=== PATIENT | male | born 1945 | race Caucasian/White ===

== ENCOUNTER 2020-09-27 15:20 | Emergency (ER) | payer OTHER ==
--- OUTSIDE RECORDS SUMMARY | 2020-09-27 15:23 | XMS REPORT | Clinical Summary ---
:1945 Author Organization [facility] Address [address] [place] [address] Care Team Providers Name Role Phone Dominic Duque DO Primary Care Provider [phone] Allergies Active Allergy Reactions Severity Noted Date Comments Penicillins Rash High 01/29/2016 Medications Medication Sig Dispensed Refills Start Date End Date Status aspirin (ECOTRIN) 81 MG Take 81 mg by 0 Active enteric coated tablet mouth daily. 80 mg 1 tablet daily multivit with 1 tablet daily. 0 Active bpb-YO-foobxtbx 400-300 Men's One Daily mcg tablet liraglutide (VICTOZA Inject 0.3 mL 9 pen 1 01/14/2017 Active 3-NANCI) 0.6 mg/0.1 mL (1.8 mg total) (18 mg/3 mL) pen under the skin injector daily with breakfast. Additional Information Patient taking differently: 1.8 mg subcutaneous daily before lunch, Informant: Self, Reported on 06/02/2018 BD ULTRA-FINE SHLOMO Use as directed 200 each 9 05/07/2017 Active PEN NEEDLES 32 gauge twice daily x 5/32" needle FREESTYLE LITE STRIPS Use to check 400 strip 10 05/09/2017 Active strip test strips blood sugar four times daily insulin GLARGINE Inject 65 Units 0 Active (LANTUS) 100 unit/mL under the skin injection (vial) every morning. cyanocobalamin 1000 Take 1,000 mcg 0 Active MCG tablet by mouth nightly. furosemide (LASIX) 40 Take 40 mg by 0 Active mg tablet mouth daily. insulin aspart Inject 20 Units 0 Active (NOVOLOG FLEXPEN under the skin. U-100 INSULIN SUBQ) metFORMIN Take 1,000 mg 0 Active (GLUCOPHAGE) 1,000 mg by mouth 2 tablet (two) times a day with meals. digOXIN (LANOXIN) 125 Take 125 mcg by 0 Active mcg (0.125 mg) tablet mouth daily. spironolactone Take 25 mg by 0 A ctive (ALDACTONE) 25 MG mouth daily. tablet carvediloL (COREG) Take 3.125 mg 0 Active 3.125 MG tablet by mouth 2 (two) times a day with meals. iron Take by mouth. 0 Activ e bisgly,ps-FA-B-C#12-s ucc 65 mg-65 mg -1,000 mcg (24) tablet ketoconazole Apply topically 30 g 1 05/07/2020 Active (NIZORAL) 2 % cream 2 (two) times a day. pantoprazole Take 1 tablet 90 tablet 0 07/01/2020 Ac tive (PROTONIX) 40 MG EC by mouth every tablet day atorvastatin Take 1 tablet 90 tablet 1 07/03/2020 Ac tive (LIPITOR) 80 MG (80 mg total) tablet by mouth nightly. clonAZEPAM (KlonoPIN) Take 1 tablet 90 tablet 1 07/03/2020/ Active 1 MG tablet (1 mg total) by 2020 mouth nightly for 90 days. DULoxetine (CYMBALTA) Take 1 capsule 90 capsule 3 07/03/2020 Active 60 MG capsule (60 mg total) by mouth daily. lisinopriL (PRINIVIL) Take 1 tablet 90 tablet 2 07/03/2020 Active 2.5 mg tablet by mouth every day NOTE STRENGTH DECREASE lidocaine (LIDODERM) Apply 3 270 patch 2 07/17/2020 Active 5 % patch(es) once daily for 12 hours on and 12 hours off as directed sitaGLIPtin-metformin Take by mouth. 0 / Discontinued (Med (JANUMET XR) 50-1,000 2019 List Cleanup) mg tablet, ER multiphase 24 hr DULoxetine (CYMBALTA) Take 1 capsule 90 capsule 3 02/27/2019 0 02/22/ Discontinued 60 MG capsule by mouth every 2020 day lisinopril Take 1 tablet 90 tablet 2 02/27/201912/12/ Disc ontinued (PRINIVIL,ZESTRIL) by mouth every 2019 (Reorder) 2.5 mg tablet day NOTE STRENGTH DECREASE lidocaine (LIDODERM) Apply 3 patches 270 patch 3 03/16/2019/ Discontinued 5 % once daily for 2019 12 hours on and 12 hours off as directed. atorvastatin Take 1 tablet 90 tablet 1 04/13/201907/03/ Di scontinued (LIPITOR) 80 MG (80 mg total) 2019 (Reorder) tablet by mouth nightly. clonAZEPAM (KlonoPIN) One P.O. - qhs 90 tablet 1 06/29/2019/ 1 MG tablet 2018 pantoprazole Take 1 tablet 90 tablet 0 07/14/201910/19/ Di scontinued (PROTONIX) 40 MG EC by mouth daily 2018 (Reorder) tablet pantoprazole Take 1 tablet 90 tablet 1 07/14/201909/27/ Di scontinued (PROTONIX) 40 MG EC (40 mg total) 2018 (Therapy tablet by mouth daily. comp leted) ALPRAZolam (XANAX) 1 Take 1 tablet 90 tablet 1 10/12/201912/30 2/ Discontinued (Med MG tablet (1 mg total) by 2019 List Cleanup) mouth nightly as needed for anxiety for up to 90 days. pantoprazole Take 1 tablet 90 tablet 0 10/20/201907/01/ Di scontinued (PROTONIX) 40 MG EC (40 mg total) 2019 tablet by mouth daily. lisinopril (PRINIVIL) Take 1 tablet 90 tablet 2 12/12/2019 08 05/ Discontinued 2.5 mg tablet by mouth every 2019 ( Reorder) day NOTE STRENGTH DECREASE clonAZEPAM (KlonoPIN) Take 1 tablet 90 tablet 1 12/27/2019 08 05/ Discontinued 1 MG tablet by mouth every 2019 (Re order) night at bedtime DULoxetine (CYMBALTA) Take 1 capsule 90 capsule 3 02/23/2020 0 805/ Discontinued 60 MG capsule by mouth every 2019 ( Reorder) day Active Problems Problem Noted Date Foraminal stenosis of lumbar region 05/07/2020 Chronic left-sided low back pain with left-sided sciat ica 05/07/2020 Sleep disorder 01/11/2020 Chronic left hip pain 01/10/2020 Bilateral leg cramps 01/10/2020 Anemia 10/12/2019 RLS (restless legs syndrome) 06/08/2019 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 11/03/2018 edema associated with type 2 diabetes mellitus Fatigue 09/20/2018 Bilateral pain of leg and foot 06/20/2018 Preoperative testing 06/03/2018 Hypotension due to drugs 03/21/2018 GERD with esophagitis 12/21/2017 Depression screen 09/20/2017 Gait disorder 08/24/2017 Pacemaker 05/21/2017 Pain of left hip joint 05/19/2017 Diabetic neuropathy 01/29/2016 Dry skin 01/29/2016 Rash 01/29/2016 Benign essential tremor 01/29/2016 Hypercholesteremia 01/29/2016 Hypertension 01/29/2016 Injury 01/29/2016 Pleurodynia 01/29/2016 Postnasal drip 01/29/2016 Rib pain 01/29/2016 Sinusitis 01/29/2016 Disordered sleep 01/29/2016 Spinal stenosis of lumbar region 01/29/2016 Tinea cruris 01/29/2016 Uncontrolled type 2 diabetes mellitus 01/29/2016 Encounters Date Type Specialty Care Team Description 09/16/2020 Office Visit Family Medicine [place], Anemia, uns pecified type Dominic Garay DO (Primary Dx) 09/16/2020 Travel 09/02/2020 Travel 08/13/2020 Refill Internal Medicine Cherri Mishra MD 07/17/2020 Refill Neurology Shanelle Mcwilliams MD 07/16/2020 Refill Internal Medicine Cherri Mishra MD 07/16/2020 Refill Neurology Shanelle Mcwilliams MD 07/03/2020 Office Visit Family Medicine [place], Type 2 diab etes mellitus without complication, with long-term current use of insulin (HCC) (Primary Dx); Dominic Garay DO Hypercholestere trent 07/03/2020 Telephone Family Medicine An Coleman LVN 07/03/2020 Travel 06/30/2020 Refill Family Medicine Dominic Duque DO 06/24/2020 Refill Family Medicine Dominic Duque DO 05/07/2020 Office Visit Family Medicine Asked, No Pcp Foraminal stenosis of lumbar region (Marjorie farideh Dx); [place], Chronic left-s ided low back pain with left-sided sciatica Dominic Garay DO 05/07/2020 Travel 03/16/2020 Refill Internal Medicine Cherri Mishra MD 02/22/2020 Refill Neurology Shanelle Mcwilliams MD 02/18/2020 Refill Internal Medicine Cherri Mishra MD 01/18/2020 Hospital Encounter Radiology Poppy, Spinal st enosis of lumbar region without neurogenic claudication; MD Shanelle Chronic left hi p pain 01/18/2020 Telephone Neurology Shanelle Mcwilliams MD 01/11/2020 Office Visit Family Medicine [place], RLS (restle ss legs syndrome) (Primary Dx); Dominic Garay DO Fatigue, unspec ified type; Sleep disorder 01/10/2020 Office Visit Neurology [place], Diabetic polyne uropathy associated with type 2 diabetes mellitus (HCC) (Primary Dx); MD Shanelle Spinal stenosis of lumbar region without neurogenic claudication; Chronic left hi p pain; Bilateral leg c ramps; Disordered slee p 12/27/2019 Refill Family Medicine Dominic Duque, 12/12/2019 Orders Only Family Medicine Dominic Duque, 12/09/2019 Refill Family Medicine Dominic Duque, 10/19/2019 Refill Family Medicine Dominic Duque, 10/12/2019 Office Visit Family Medicine [place], Sleep disor marylou (Primary Dx); Dominic Garay DO Anemia, unspeci fied type 09/28/2019 Refill Internal Medicine Cherri Mishra MD 09/27/2019 Surgery Gastroenterology Luis Antonio, COLONOSCOPY Felix Peacock MD 09/27/2019 Anesthesia Event Gastroenterology Tylor Robin MD You, [place] 09/27/2019 Hospital Encounter Gastroenterology Felix Salmon MD after 09/27/2019 Immunizations Name Administration Dates Next Due FLUZONE HIGH-DOSE PF 09/16/2020, 09/20/2018, 11/17/2016, , 08/29/2014 Surgical History Surgery Date Site/Laterality Comments HERNIA REPAIR COLONOSCOPY "Over ten years" CARDIAC PACEMAKER PLACEMENT KNEE ARTHROSCOPY LEFT ANKLE FRACTURE SURGERY RIGHT LUMBAR LAMINECTOMY SHOULDER ARTHROSCOPY W/ RIGHT ROTATOR CUFF REPAIR ESOPHAGOGASTRODUODENOSCOPY BACK SURGERY Lumbar Acrae Heavenly itis T1-T2 CORONARY ARTERY BYPASS GRAFT tri ple CARDIAC CATHETERIZATION 11/26/20 N/A Procedur e: Cv bypass graft 17 left heart; Aaron geon: Farideh Wyman MD; Location: [email or web address] [place] Person Invasive Locatio n; Service: Cardiovascular; Laterality: N/A; CARDIAC ELECTROPHYSIOLOGY 06/03/2018 N/A Proced ure: BIVENTRICULAR ICD PROCEDURE UPGRADE; Surgeo n: Ace Norton MD; Location: [facility] [[email or web address]] [place] Person Invasive Locatio n; Service: Cardiovascular; Laterality: N/A; Medical devices from this surgery are in t he Implants section. CARDIAC ELECTROPHYSIOLOGY 06/03/2018 N/A Proced ure: Ep insertion PROCEDURE electrode left v entricular pacing; Surgeon : Ace Norton MD; Location: [facility] [[email or web address]] [place] Person Invasive Locatio n; Service: Cardiovascular; Laterality: N/A; Medical devices from this surgery are in t he Implants section. COLONOSCOPY 09/27/20 N/A Procedure: COLON OSCOPY; 19 Surgeon: Felix Jones MD; Locat ion: [facility] [[email or web address]] ENDOSCOPY; Serv ice: Gastroenterology ; Laterality: N/A; ESOPHAGOGASTRODUODENOSCOPY 09/27/20 Esophagus/Lateral Pro cedure: (EGD) 19 ESOPHAGOGASTRODU ODENOSCOPY (EGD); Surgeon: Felix Salmon MD; Location: [facility] [[email or web address]] ENDOSCOPY; Service: Gastroenterology ; Laterality: Late ral; Medical History Medical History Date Comments Hypercholesteremia Diabetes mellitus (HCC) Hypertension GERD (gastroesophageal reflux disease) Visual impairment Pneumonia ADHD (attention deficit hyperactivity 1971 re turn from [facility] disorder) CHF (congestive heart failure) (HCC) 2010 tri ple bypass HL (hearing loss) Hypertension 2012 Arthritis Irregular heartbeat 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 PACEMAKER 1.5 Y RS AGO Family History Medical History Relation Name Comments Diabetes Brother Jer North Passed , Nov., 2 010 Cancer Father Rolo North Passed , Jun 29 978 Heart disease Mother Relation Name Status Comments Brother Jer North (Age 59) DIABETES Father Rolo North (Age 74) CANCER Mother (Age 94) NATURAL CAUSE S Social History Tobacco Use Types Packs/Day Years Used Date Current Every Day Smoker Cigarettes 1 60 Sta rted: 04/19/1956 Smokeless Tobacco: Former User Chew Q uit: 1972 Tobacco Cessation: Ready to Quit: No; Co unseling Given: Yes Comments: tried 3-X , no workie Alcohol Use Drinks/Week oz/Week Comments No Sex Assigned at Date Recorded Male 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 Last Filed Vital Signs Vital Sign Reading Time Taken Comments Blood Pressure 102/71 09/16/2020 2:10 PM CDT Pulse 81 09/16/2020 2:10 PM CDT Temperature 36.7 C (98.1 F) 09/16/2020 2:10 PM CDT Respiratory Rate 18 09/16/2020 2:10 PM CDT Oxygen Saturation 97% 09/16/2020 2:10 PM CDT Inhaled Oxygen Concentration - - Weight 83 kg (183 lb) 09/16/2020 2:10 PM CDT Height 177.8 cm (5' 10") 09/16/2020 2:10 PM CDT Body Mass Index 26.26 09/16/2020 2:10 PM CDT Plan of Treatment Date Type Specialty Care Team Description 12/17/2020 Office [place] [address] [place], [place] [address] [phone] 01/08/2021 Office Visit Neurology Shanelle Mcwilliams MD [address] [facility] [address] [place] [address] Health Maintenance Due Date Last Done Comments URINE MICROALBUMIN 02/09/2018 02/09/2017, 04/07/2016 DIABETIC FOOT EXAM 07/03/2021 07/03/2020, 07/03/2020, 04/07/2016, Additional history exists DIABETES: RETINAL EYE EXAM 09/09/2021 09/09/2020, 9, 10/12/2018 65+ PNEUMOCOCCAL VACCINE (1 09/16/2021 Post poned from of 1 - PPSV23) 2012 ([place] Refused) SHINGLES VACCINES (#1) 09/16/2021 Postponed from 1997 ([place] Refused) COLONOSCOPY SCREENING 11/06/2029 11/06/2019 INFLUENZA VACCINE Completed 09/16/2020, 08/21/2019, 09/20/2018, Additional history exists Implants Implanted Type Area Graphic Production Artist Device Shelf Model / Serial / Identifier Expiration Lot Date Disp Pacing Cable, Small Clip W/Safe Connect Cables/ Leads N/A: N/A RUTHANN 07/21/2020 [id number] / Implanted: Qty: 1 on 06/03/2018 by Ace Noe MD at [facility] [employer], [facility]. [id number] / [id number] [place] Df4 Tachy Lead - [id number] - [id number] Cardiac Pacing N/ A: [place] 10/20/2019 [id number] / Implanted: Qty: 1 on 06/03/2018 by Ace Noe MD at [facility] Leads or Coronary SCIENTIFIC- [id number] / Electrodes or [id number] Accessories Acuity X4 Spiral L Pacing Lead - [id number] - [id number] Cardiac Pa cing N/A: [place] 08/19/2019 [id number] / Implanted: Qty: 1 on 06/03/2018 by Ace Noe MD at [facility] Leads or Coronary SCIENTIFIC- [id number] / Electrodes or [id number] Accessories Surgical Coordinator-D Vigilant X4 Is4 Df4 - [id number] - [id number] Defibrillator N/A: [place] 04/11/2020 [id number] / Implanted: Qty: 1 on 06/03/2018 by Ace Noe MD at [facility] ICD Devices Chest [employer]- [id number] / [id number] Leads, Pacing-08/29/2012 Leads, Pacing [id number] / Implanted: Qty: 1 on 08/29/2012 by Farideh Wyman MD [id number] / Leads, Pacing-08/29/2012 Leads, Pacing [id number] / Implanted: Qty: 1 on 08/29/2012 by Farideh Wyman MD [id number] / Procedures Procedure Name Priority Date/Time Associated Comments Diagnosis VITAMIN B12 LEVEL Routine 09/16/2020 Anemia, Results fo r 3:20 PM CDT unspecified type this procedure are in the results section. FOLATE LEVEL Routine 09/16/2020 Anemia, Results for 3:20 PM CDT unspecified type this procedure are in the results section. IRON LEVEL Routine 09/16/2020 Anemia, Results for 3:20 PM CDT unspecified type this procedure are in the results section. CBC WITH PLATELET AND Routine 09/16/2020 Anemia, Result s for DIFFERENTIAL 3:20 PM CDT unspecified type this procedure are in the results section. FLUZONE HIGH-DOSE QUAD PF Routine 09/16/2020 (0.7ML SYRINGE) 3:00 PM CDT LIPID PANEL Routine 07/03/2020 Results for 2:21 PM CDT this procedure are in the results section. HEMOGLOBIN A1C Routine 07/03/2020 Type 2 diabetes Results fo r 2:21 PM CDT mellitus without this complication, with procedure are long-term current in the use of insulin results (HCC) section. 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 COMPREHENSIVE METABOLIC PANEL Routine 01/10/2020 Diabetic Results for 3:57 PM [employer] TE[employer] SPECIALIST polyneuropathy this associated with procedure ar e type 2 diabetes in the mellitus (HCC) results Spinal stenosis of section. 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 SURGICAL PATHOLOGY REQUEST Routine 09/27/2019 R esults for 11:54 AM CDT this procedure are in the results section. ESOPHAGOGASTRODUODENOSCOPY 09/27/2019 ANEMIA, SCREEN ING, (EGD) 11:32 AM CDT HX OF COLON POLYPS, ESOPHAGITIS, D64.9, Z12.11, Z86.010, K21.0 COLONOSCOPY 09/27/2019 ANEMIA, SCREENING, 11:32 AM CDT HX OF COLON POLYPS, ESOPHAGITIS, D64.9, Z12.11, Z86.010, K21.0 POC GLUCOSE Routine 09/27/2019 Results for 11:29 AM CDT this procedure are in the results section. ECG 12-LEAD Routine 09/27/2019 Results for 10:10 AM CDT this procedure are in the results section. after 09/27/2019 Results CBC with platelet and differential (09/16/2020 3:20 PM CDT)Only the most recent of2 resultswithin the time period is included. Pathologist Sig nature WBC 7.5 3.8 - 10.8 [facility] Thousand/uL [place] RBC 4.76 4.20 - 5.80 [facility] Million/uL [place] HGB 14.7 13.2 - 17.1 [facility] g/dL [place] HCT 42.5 38.5 - 50.0 % [facility] [place] MCV 89.3 80.0 - 100.0 fL [facility] [place] MCH 30.9 27.0 - 33.0 pg [facility] [place] MCHC 34.6 32.0 - 36.0 [facility] g/dL [place] RDW 14.5 11.0 - 15.0 % [facility] [place] Platelet count 219 140 - 400 [facility] Thousand/uL [place] MPV 11.8 7.5 - 12.5 fL [facility] [place] Neutrophils, absolute 5,183 1,500 - 7,800 [facility] cells/uL [place] Lymphocytes, absolute 1,553 850 - 3,900 [facility] cells/uL [place] Monocytes, absolute 630 200 - 950 [facility] cells/uL [place] Eosinophils, absolute 83 15 - 500 [facility] cells/uL [place] Basophils, absolute 53 0 - 200 [facility] cells/uL [place] Neutrophils 69.1 % [facility] [place] Lymphocytes 20.7 % [facility] [place] Monocytes 8.4 % [facility] [place] Eosinophils 1.1 % [facility] [place] Basophils + RC 0.7 % [facility] [place] Specimen Blood Narrative Performed At FASTING:NO [facility] FASTING: NO Resulting Agency Comment Performing Organization Information: Site ID: [id number] Name: [facility] Address: [address] [place] [phone] Director: Gibran Richardson Performing Organization Address City/State/ZIP Code Phon e Number [facility] [address] [address] Iron level (09/16/2020 3:20 PM CDT) Pathologist Sig nature Iron level 54 50 - 180 mcg/dL [employer] [facility] [place] Specimen Blood Narrative Performed At FASTING:NO [facility] FASTING: NO Resulting Agency Comment Performing Organization Information: Site ID: [id number] Name: [facility] Address: [address] [place] [phone] Director: Gibran Richardson Performing Organization Address [facility] Phon e Number [facility] [place] [phone] Folate level (09/16/2020 3:20 PM CDT) Pathologist Sig nature Folate 20.5 ng/mL [facility] Comment: [place] Reference Rang e Low: <3.4 Borderline: 3.4-5.4 Normal: >5.4 Specimen Blood Narrative Performed At FASTING:NO [facility] FASTING: NO Resulting Agency Comment Performing Organization Information: Site ID: [id number] Name: [facility] Address: [address] [place] [phone] Director: Gibran Richardson Performing Organization Address [facility] [place] [address] Vitamin B12 level (09/16/2020 3:20 PM CDT) Pathologist Sig nature Vitamin B12 >2000 (H) 200 - 1100 pg/mL [facility] [place] Specimen Blood Narrative Performed At FASTING:NO [facility] FASTING: NO Resulting Agency Comment Performing Organization Information: Site ID: [id number] Name: [facility] Address: [address] [place] [phone] Director: Gibran Richardson Performing Organization Address [facility] [place] [address] Fluzone High-Dose Quad PF (0.7mL syringe) (09/16/2020 3:00 PM CDT) Specimen Injection Hemoglobin A1c (07/03/2020 2:21 PM CDT) Hemoglobin A1C 7.3 (H) <5.7 % of [facility] Comment: total Hgb [place] For someone without known diabetes, a hemoglobin A1c value of 6.5% or greater indicates that they may have diabetes and this should be confirmed with a follow-up test. For someone with known diabetes, a value <7% indicates that their diabetes is well controlled and a value greater than or equal to 7% indicates suboptimal control. A1c targets should be individualized based on duration of diabetes, age, comorbid conditions, and other considerations. Currently, no consensus exists regarding use of hemoglobin A1c for diagnosis of diabetes for children. Specimen Blood Narrative Performed At FASTING:YES [facility] FASTING: YES Resulting Agency Comment Performing Organization Information: Site ID: [id number] Name: [facility] Address: [address] [place], [place] [id number] Director: Gibran Richardson Performing Organization Address [facility] [place] [address] Lipid panel (07/03/2020 2:21 PM CDT) Cholesterol, total 128 <200 mg/dL [facility] [place] HDL cholesterol 29 (L) > OR = 40 [facility] mg/dL [place] Triglycerides 107 <150 mg/dL [facility] [employer] [place] LDL cholesterol 80 mg/dL (calc) [facility] calculated Comment: [place] Reference range: <100 Desirable range <100 mg/dL for primary prevention; <70 mg/dL for patients with CHD or diabetic patients with > or = 2 CHD risk factors. LDL-C is now calculated using the Leroy-Riley calculation, which is a validated novel method providi ng better accuracy than the Friedewald equation in the estimation of LDL-C. Leroy SS et al. VANESSA. 2013;310(19): 3828-4063 (http://education.[employer]/faq/WUG054) Cholesterol/HDL 4.4 <5.0 (calc) [facility] Non-HDL cholesterol 99 <130 mg/dL [facility] Comment: (calc) [place] For patients with diabetes plus 1 major ASCVD risk factor, treating to a non-HDL-C goal of <100 mg/dL (LDL-C of <70 mg/dL) is considered a therapeutic option. 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 CLINICAL HISTORY: M48.061 Spinal stenosis lumba r region without neurogenic claudication, M25.552 Pain in left hip, Lum bar stenosis. Right-sided back pain left hip pain COMPARISON: None. FINDINGS: L5-S1: There is marked spondylosis, moderate disc spa ce narrowing and vacuum disc phenomena greatest laterally on the left. There are moderate degenerative and hypertrophic changes the facet joint on the left and to a lesser degree on the right. There is mild dorsal spondylosis and bulging of the disc ext ending into the neural foramen on the left with moderate to marked lef t foraminal stenosis. There is mild foraminal stenosis on the righ t side. There is no spinal canal stenosis. There are mild degenerative changes in t he sacroiliac joints. L4-5: There are postoperative laminotomy changes on th e left. There is slight lateral subluxation of L4 in relation L5 toward s the left. There is marked spondylosis, mild disc space narrowing and v acuum disc phenomena on the right. There is mild do rsal spondylosis and bulging of the disc. There are mild de generative changes in the facet joints. There is moderate lateral recess stenosis of L5 greater on the left and there is marked lateral recess stenosis on the left at L4 with moderate stenosis right. There is moderate to marked foraminal stenosis bilater ally particularly on the left. L3-4: There is marked disc space narrowing, spondylosi s and degenerative change in the disc laterally on the right. There is mo derate to marked curvature of the lumbar spine convex towards the left with apex at this level. There is disc and osteophyte extending into the neural foramen on the right with ma rked right foraminal stenosis. There is no significant foraminal stenosis on the left side. There is mild spinal canal stenosis. There is a limbus vertebra defect in the anterior superior aspect of the centrum of L4. L2-3: There is moderate to marked spondylosis laterall y on the right and minimal vacuum disc phenomenon the right. Minimal dors al bulging of the disc and a possible minimal subarticular protrusion on the right. There is mild to moderate foraminal stenosis on the right. L1-2: There is moderate moderate spondylosis without s ignificant stenosis. T12-L1: There is a moderate spondylosis without stenosis. T11-12: There is a marked spondylosis, moderate disc s pace narrowing and degenerative change in the disc laterally on the left. There is a moderate to marked foraminal stenosis on the left. IMPRESSION: Lumbar levoscoliosis, marked spondylosis and postopera tive changes. There is spinal canal stenosis at L3-4. There is multi level foraminal stenosis bilaterally. [facility]-[id number] Procedure Note Hm Interface, Radiology Results - 01/18/2020 2:26 PM [employer] EXAMINATION: CT LUMBAR SPINE WO CONTRAST CT IMAGING WAS PERFORMED WITH ITERATIVE RECONSTRUCTION TECHNIQUE AND/OR AUTOMATED EXPOSURE CONTROL TO REDUCE RADIATION DOSE. CLINICAL HISTORY: M48.061 Spinal sten osis lumbar region without neurogenic claudication, M25.552 Pain in left hip, Lumbar stenosis. Right-sided back pain left hip pain COMPARISON: None. FINDINGS: L5-S1: There is marked spondylosis, mod erate disc space narrowing and vacuum disc phenomena greatest laterally on the left. There are moderate degenerative and hypertrophic changes the facet joint on the left and to a lesser degree on the right. There is mild dorsal spondylosis and bulging o f the disc extending into the neural foramen on the left with moderate to marked left foraminal stenosis. There is mild foraminal stenosis on the right side. There is no spinal canal stenosis. There are mild degenerative changes in t he sacroiliac joints. L4-5: There are postoperative laminotomy changes on the left. There is slight lateral subluxation of L4 in relation L5 towards the left. There is marked spondylosis, mild disc space narrowing and vacuum disc phenomena on the right. There is mild dorsal spondylosis and bulging of the disc. The re are mild degenerative changes in the facet joints. There is moderate lateral recess stenosis of L5 greater on the left and there is marked lateral recess stenosis on the left at L4 with moderate stenosis right. There is moderate to marked foraminal st enosis bilaterally particularly on the left. L3-4: There is marked disc space narrowi ng, spondylosis and degenerative change in the disc laterally on the right. There is moderate to marked curvature of the lumbar spine convex towards the left with apex at this level. There is disc and osteophyte extending into the neural foramen on the right with marked right foraminal stenosis. There is no significant foraminal stenosis on the left side. There is mild spinal canal stenosis. There is a limbus vertebra defect in the anterior superior aspect of the centrum of L4. L2-3: There is moderate to marked spondy losis laterally on the right and minimal vacuum disc phenomenon the right. Minimal dorsal bulging of the disc and a possible minimal subarticular protrusion on the right. There is mild to moderate foraminal stenosis on the right. L1-2: There is moderate moderate spondyl osis without significant stenosis. T12-L1: There is a moderate spondylosis without stenosis. T11-12: There is a marked spondylosis, m oderate disc space narrowing and degenerative change in the disc laterally on the left. There is a moderate to marked foraminal stenosis on the left. IMPRESSION: Lumbar levoscoliosis, marked spondylosis and postoperative changes. There is spinal canal stenosis at L3-4. There is multilevel foraminal stenosis bilaterally. [facility]-[id number] Performing Organization Address City/State/ZIP Code [facility] e Number [facility] [address] [place] [address] Comprehensive metabolic panel (01/10/2020 3:57 PM [employer] SPECIALIST) Glucose 142 (H) 65 - 99 [facility] Comment: mg/dL [place] Fasting reference interval For someone without known diabetes, a glucose value >125 mg/dL indicates that they may have diabetes and this should be confirmed with a follow-up test. BUN 19 7 - 25 mg/dL [facility] [place] Creatinine 1.10 0.70 - 1.18 [facility] Comment: mg/dL [place] For patients >49 years of age, the reference limit for Creatinine is approximately 13% higher for people identified as -[place]. EGFR Non-Afr. 67 > OR = 60 [facility] [place] mL/min/1.73m [place] 2 EGFR 77 > OR = 60 [facility] [place] mL/min/1.73m [place] 2 BUN/creatinine NOT APPLICABLE 6 - 22 [facility] ratio (calc) [place] Sodium 138 135 - 146 [facility] mmol/L [place] Potassium 4.5 3.5 - 5.3 [facility] mmol/L [place] Chloride 101 98 - 110 [facility] mmol/L [place] CO2 31 20 - 32 [facility] mmol/L [place] Calcium 9.9 8.6 - 10.3 [facility] mg/dL [place] Protein 7.1 6.1 - 8.1 [facility] g/dL [place] Albumin, S 3.9 3.6 - 5.1 [facility] g/dL [place] Globulin, total 3.2 1.9 - 3.7 [facility] g/dL (calc) [place] Albumin/globulin 1.2 1.0 - 2.5 [facility] ratio (calc) [place] Total bilirubin 0.7 0.2 - 1.2 [facility] mg/dL [place] Alkaline 76 35 - 144 U/L [facility] phosphatase [place] AST 16 10 - 35 U/L [facility] [place] ALT 20 9 - 46 U/L [facility] [place] Specimen Blood Narrative Performed At FASTING:YES [facility] FASTING: YES Resulting Agency Comment Performing Organization Information: Site ID: [id number] Name: [facility] Nyla [facility] Address: [address] [place] [id number] Director: Gibran Richardson Performing Organization Address City/[facility] [place] [address] Surgical pathology request (09/27/2019 11:54 AM CDT) [email or web address]] DEPARTMENT OF PATHOLOGY AND GENOMIC MEDICINE Surgical pathology See link below [facility] [email or web address]] DEPARTMENT OF report for PDF Lab PATHOLOGY AND Report GENOMIC MEDICINE Result status This is Final [facility] [email or web address]] DEPARTMENT OF Report for PATHOLOGY AND [id number] GENOMIC MEDICINE Specimen Performing Organization Address City/[facility] Code Phon e Number [facility] [[email or web address]] DEPARTMENT OF PATHOLOGY AND [address] [place] [address] GENOMIC MEDICINE POC glucose (09/27/2019 11:29 AM CDT) Pathologist Sig nature POC glucose 141 (H) 65 - 99 mg/dL [place] CONFUCIANIST Comment: [facility] Meter ID: [id number] Electronic Health Records Specialist: Aniket Cabrera Specimen Performing Organization Address City/[facility]/ZIP Code Phon e Number [facility] [[email or web address]] DEPARTMENT OF PATHOLOGY AND [address] [place] [address] GENOMIC MEDICINE [place] [facility] [address] [place] [id number] [facility] ECG 12 lead (09/27/2019 10:10 AM CDT) Pathologist Sig nature Ventricular rate 82 [facility] Atrial rate [address] interval 160 [facility] QRSD interval 136 [facility] QT interval 422 [facility] QTC interval 493 [facility] P axis 1 18 [facility] QRS axis 1 -21 [facility] T wave axis 153 [facility] EKG impression Demand pacemaker, interpreta tion is based on intrinsic rhythm- Sinus rhythm with marked sinus arrhythmia with premature ventricular complexes or fusion complexes with ventricular escape tlhlffccy-Ztfam-U [facility] ojbrhiga-Rpsqp-Xreulevc ECG-In automated comparison with ECG of 02-JUN-2018 09:3 4,-Electronic demand pacing is now present-fusion complexes are now present-premature ventricular complexes are now present-Sinus rhythm is now with ventricular escape yffhxikhf-Cvkoh-Ewpsxrhjp-White is now present-Electronically Loren d By Aravind GROSSMAN, Aravind ([id number]) on 09/27/2019 11:23:10 AM Specimen Narrative Performed At This result has an attachment that is no t available. 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
--- OUTSIDE RECORDS SUMMARY | 2020-09-27 15:24 | XMS REPORT | Continuity of Care Document ---
:1945 Author Organization [facility] t Address [address] [place] [address] Care Team Providers Name Role Phone Dominic Duque DO Primary Care Physician [phone] Jarrod Duque DO Attending Clinician Danica GROSSMAN Attending Clinician Corky GROSSMAN Attending Clinician Jared FOLEY Attending Clinician Unavailable Asked, Pcp Attending Clinician Unavailable Ayush Salmon MD Attending Clinician Lobito GROSSMAN Attending Clinician You Attending Clinician MILES Admitting Clinician Unavailable Payers Payer Name Policy Type Policy Number Effective Date Expiration Date Haydee iniguez [id number] 2015 [place] [id number] 00:00:00 Scientologist /2016- tMilitary Problems Condition Condition Condition Status Onset Resolution Last Treating Co mments Source Name Details Category Date Date Treatment Clinician Date Foraminal Foraminal Disease Active Óscar ston stenosis stenosis 05-07 Method i of lumbar of lumbar 00:00: st region region 00 Chronic Chronic Disease Active 2020 [place] left-sided left-sided 6-09 Me thodi low back low back 00:00: st pain with pain with 00 left-sided left-sided sciatica sciatica Sleep Sleep Disease Active [place] disorder disorder 2-13 Method i 00:00: st 00 Chronic Chronic Disease Active [place] left hip left hip 2-12 Method i pain pain 00:00: st 00 Bilateral Bilateral Disease Active Óscar ston leg cramps leg cramps 2-12 Ia thodi 00:00: st 00 Anemia Anemia Disease Active 2018-11 [place] 1-14 Methodi 00:00: st 00 RLS RLS Disease Active [place] (restless (restless 7-11 Meth andrae legs legs 00:00: st syndrome) syndrome) 00 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 [facility]prolife [facility]06 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 without without macular macular edema edema associated associated with type with type 2 diabetes 2 diabetes mellitus mellitus Fatigue Fatigue Disease Active 2017-11 [place] 0-23 Methodi 00:00: st 00 Bilateral Bilateral Disease Active Óscar ston pain of pain of 7-23 Methodi leg and leg and 00:00: st foot foot 00 Preoperati Preoperati Disease Active H cheikh ve testing [facility] 7[facility]06 [facility] Hypotensio Hypotensio Disease Active H cheikh n due to n due to 4-23 Method i drugs drugs 00:00: st 00 GERD with GERD with Disease Active Óscar ston esophagiti esophagiti 1-23 [facility] 00 Depression Depression Disease Active 2016-11 H cheikh screen screen 0-23 Methodi 00:00: st 00 Gait Gait Disease Active [place] disorder disorder 9-26 Method i 00:00: st 00 Pacemaker Pacemaker Disease Active Óscar ston 6-23 Methodi 00:00: st 00 Pain of Pain of Disease Active [place] left hip left hip 6-21 Method i joint joint 00:00: st 00 Diabetic Diabetic Disease Active [place] neuropathy neuropathy 3-[facility] Dry skin Dry skin Disease Active [place] 3-02 Methodi 00:00: st 00 Rash Rash Disease Active [place] 3-02 Methodi 00:00: st 00 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 3-02 Meth andrae tremor tremor 00:00: st 00 Hyperchole Hyperchole Disease Active cheikh steremia steremia 01-28 Method i 00:00: st 00 Hypertensi Hypertensi Disease Active H [place] on on 01-28 Methodi 00:00: st 00 Injury Injury Disease Active [place] 01-28 Methodi 00:00: st 00 Pleurodyni Pleurodyni Disease Active cheikh a a 01-28 Methodi 00:00: st 00 Postnasal Postnasal Disease Active Óscar ston drip drip 01-28 Methodi 00:00: st 00 Rib pain Rib pain Disease Active [place] 01-28 Methodi 00:00: st 00 Sinusitis Sinusitis Disease Active Óscar ston 01-28 Methodi 00:00: st 00 Disordered Disordered [facility] Methodi [facility]: st 00 Spinal Spinal Disease Active [place] stenosis stenosis 01-28 Method i of lumbar of lumbar 00:00: st region region 00 Tinea Tinea Disease Active [place] cruris cruris 01-28 Methodi 00:00: st 00 Uncontroll Uncontroll Disease [facility] 2 ed type 2 01-28 [facility] diabetes diabetes 00:00: st mellitus mellitus 00 Allergies, Adverse Reactions, Alerts Allergy Allergy Status Severity Reaction(s) Onset Inactive Treating Comm ents Source Name Type Date Date Clinician Penicill Propensi Active Rash [place] ins ty to 01-28 Methodi adverse 00:00: st reaction 00 s to drug Family History Family Member Diagnosis Comments Start Date Stop Date Source Natural brother Diabetes [facility] ethodist Natural father Cancer [facility] thodist Natural mother Heart disease [facility] Scientologist Social History Social Habit Start Date Stop Date Quantity Comments Source History of tobacco 1954-04[birth year]19 Current every Óscar taya Scientologist use 00:00:00 day smoker Sex Assigned At [facility] ethodist Exposure to Not sure [place] Metho dist SARS-CoV-2 (event) Cigarettes smoked 2020-09-16 2020-09-16 Golden Serrano current (pack per 00:00:00 00:00:00 day) - Reported Cigarette 2020-09-16 2020-09-16 Golden Chan ist pack-years 00:00:00 00:00:00 Tobacco use and 2020-09-16 2020-09-16 Former user [place] Scientologist exposure 00:00:00 00:00:00 Alcohol intake 2020-09-16 2020-09-16 Current [facility] thodist 00:00:00 00:00:00 non-drinker of alcohol (finding) Tobacco Comment 2016-04-07 2016-04-07 tried 3-X , no [place] Scientologist 00:00:00 00:00:00 workie Smoking Status Start Date Stop Date Source Current every day smoker 2020-09-16 00:00:00 Óscar ston Scientologist Medications Ordered Filled Start Stop Current Ordering Indication Dosage Frequency Signature Comments Components Source Medication Medication Date Date Medication? Clinician (SIG) Name Name aspirin 2019-11 Yes 81mg QD Take 81 mg [place] (ECOTRIN) 0-19 by mouth Method i 81 MG 14:13: daily. 80 st enteric 16 mg 1 coated tablet tablet daily multivit 2019-11 Yes 1{tbl} QD 1 tablet Óscar ston with 0-19 daily. Methodi min-FA-lyco 14:13: Men's One s t pene 16 Daily 400-300 mcg tablet insulin 2019-11 Yes 65U QD Inject 65 [place] GLARGINE 0-19 Units Methodi (LANTUS) 14:13: under the st 100 unit/mL 16 skin every injection morning. (vial) cyanocobala 2019-11 Yes 1000ug QD Take 1,000 Franks min 1000 0-19 mcg by Methodi MCG tablet 14:13: mouth st 16 nightly. furosemide 2019-11 Yes 40mg QD Take 40 mg [place] (LASIX) 40 0-19 by mouth Metho di mg tablet 14:13: daily. st 16 insulin 2019-11 Yes 20U Inject 20 [place] aspart 0-19 Units Methodi (NOVOLOG 14:13: under the st FLEXPEN 16 skin. U-100 INSULIN SUBQ) metFORMIN 2019-11 Yes 1000mg Q.5D Take 1,000 [facility] (GLUCOPHAGE 0-19 mg by Methodi ) 1,000 mg 14:13: mouth 2 st tablet 16 (two) times a day with meals. digOXIN 2019-11 Yes 125ug QD Take 125 [place] (LANOXIN) 0-19 mcg by Methodi 125 mcg 14:13: mouth st (0.125 mg) 16 daily. tablet spironolact 2020-1 Yes 25mg QD Take 25 mg [place]anks one 0-19 by mouth Methodi (ALDACTONE) 14:13: daily. st 25 MG 16 tablet iron 2020-1 Yes Take by Golden bisgly,ps-F 0-19 mouth. Method i A-B-C#12-chandler 14:13: st cc 65 mg-65 16 mg -1,000 mcg (24) tablet lidocaine 2020-0 Yes Apply 3 [place] (LIDODERM) 8 patch(es) Meth andrae 5 % 00:00: once daily st 00 for 12 hours on and 12 hours off as directed atorvastati 2020-0 Yes 80mg QD Take 1 [place] (LIPITOR) 8-05 tablet (80 Me thodi 80 MG 00:00: mg total) st tablet 00 by mouth nightly. DULoxetine 2020-0 Yes 60mg QD Take 1 [place] (CYMBALTA) 8-05 capsule Method i 60 MG 00:00: ([address] capsule 00 total) by mouth daily. lisinopriL 2020-0 Yes Take 1 [place] (PRINIVIL) 8-05 tablet by Meth andrae 2.5 mg 00:00: mouth st tablet 00 every day NOTE STRENGTH DECREASE clonAZEPAM 2020-0 2020- Yes 1mg QD Take 1 [place] (KlonoPIN) 8- 11-03 tablet (1 Met hodi 1 MG tablet 00:00: 23:59 mg total) st 00 :00 by mouth nightly for 90 days. pantoprazol 2020-0 Yes Take 1 [place] 8-03 tablet by Methodi (PROTONIX) 00:00: mouth st 40 MG EC 00 every day tablet carvediloL 2020-0 Yes 3.125mg Q.5D Take 3.125 [place] (COREG) 6-09 mg by Methodi 3.125 MG 13:55: mouth 2 st tablet 59 (two) times a day with meals. ketoconazol 2020-0 Yes Q.5D Apply [place] (NIZORAL) 6-09 topically Met hodi 2 % cream 00:00: 2 (two) st 00 times a day. DULoxetine 2020-0 2020- No Take 1 [place] (CYMBALTA) 3-27 08-05 capsule by Me thodi 60 MG 00:00: 00:[address] capsule 00 :00 every day sitaGLIPtin 2020-0 2020- No Take by nury -metformin 01-10- mouth. Method i (JANUMET 13:48: 00:00 st XR) 03 :00 50-1,000 mg tablet, ER multiphase 24 hr clonAZEPAM 2019- No Take 1 [place] (KlonoPIN) 12-27-05 tablet by Met hodi 1 MG tablet 00:00: 00:[address] 00 :00 every night at bedtime lisinopril 2019- No Take 1 [place] (PRINIVIL) 12-1205 tablet by Met hodi 2.5 mg 00:00: 00:[address] tablet 00 :00 every day NOTE STRENGTH DECREASE pantoprazol 2018-11- No 40mg QD Take 1 Óscar prospern e 12-20 tablet (40 Methodi (PROTONIX) 00:00: 00:00 mg total) s t 40 MG EC 00 :00 by mouth tablet daily. ALPRAZolam 2018-11- No 1mg QD Take 1 [place] (XANAX) 1 12-12 tablet (1 Meth andrae MG tablet 00:00: 00:00 mg total) st 00 :00 by mouth nightly as needed for anxiety for up to 90 days. pantoprazol 2018- Take 1 Óscar ston e 07-14 11-21 tablet by Methodi (PROTONIX) 00:00: 00:[address] 40 MG EC 00 :00 daily tablet pantoprazol No 40mg QD Take 1 Óscar ston e 07-14 10-30 tablet (40 Methodi (PROTONIX) 00:00: 00:00 mg total) s t 40 MG EC 00 :00 by mouth tablet daily. clonAZEPAM 2018- One P.O. - Franks (KlonoPIN) 06-29 qhs Methodi 1 MG tablet 00:00: 23:59 st 00 :00 atorvastati 2019- No 80mg QD Take 1 Óscar ston n (LIPITOR) 04-13-05 tablet (80 M ethodi 80 MG 00:00: 00:00 mg total) st tablet 00 :00 by mouth nightly. lidocaine 2019- No Apply 3 [place] (LIDODERM) 03-16 patches Metho di 5 % 00:00: 00:[address] 00 :00 for 12 hours on and 12 hours off as directed. DULoxetine 2019- No Take 1 [place] (CYMBALTA) 02-27 capsule by Me oswald 60 MG 00:00: 00:[address] capsule 00 :00 every day lisinopril 2019- No Take 1 [place] (PRINIVIL,Z 02-27 tablet by Me oswald ESTRIL) 2.5 00:00: 00:[address] mg tablet 00 :00 every day NOTE STRENGTH DECREASE FREESTYLE Yes Use to Donny n LITE STRIPS 05-09 check Methodi strip test 00:00: blood st strips 00 sugar four times daily BD Yes Use as Golden ULTRA-FINE 05-07 directed Metho di SHLOMO PEN 00:00: twice st NEEDLES 32 00 daily gauge x 5/32" needle liraglutide Yes 1.8mg QD Inject 0.3 [place] (VICTOZA 2-16 mL (1.8 mg Metho di 3-NANCI) 0.6 00:00: total) st mg/0.1 mL 00 under the (18 mg/3 skin daily mL) pen with injector breakfast. Immunizations Ordered Immunization Filled Immunization Date Status Commen ts Source Name Name FLUZONE HIGH-DOSE PF 2020-09-16 Completed [place] 00:00:00 Scientologist FLUZONE HIGH-DOSE PF 2018-09-20 Completed [place] 00:00:00 Scientologist FLUZONE HIGH-DOSE PF 2016-11-17 Completed [place] 00:00:00 Scientologist FLUZONE HIGH-DOSE PF 2015-11-18 Completed [place] 00:00:00 Scientologist FLUZONE HIGH-DOSE PF 2014-08-29 Completed [place] 00:00:00 Scientologist Vital Signs Vital Name Observation Time Observation Value Comments Source Systolic blood 2020-09-16 14:10:00 102 mm[Hg] Donny n Scientologist pressure Diastolic blood 2020-09-16 14:10:00 71 mm[Hg] Maira Serrano pressure Heart rate 2020-09-16 14:10:00 81 /min Golden Srerano Body temperature 2020-09-16 14:10:00 36.72 Estee [place] Scientologist Respiratory rate 2020-09-16 14:10:00 18 /min Carolina Serrano Body height 2020-09-16 14:10:00 177.8 cm Golden Serrano Body weight 2020-09-16 14:10:00 83.008 kg Golden Serrano BMI 2020-09-16 14:10:00 26.26 kg/m2 Golden Serrano Oxygen saturation in 2020-09-16 14:10:00 97 /min Golden Serrano Arterial blood by Pulse oximetry Procedures Procedure Date / Time Performing Source Performed Clinician CBC WITH PLATELET AND DIFFERENTIAL 2020-09-16 Dominic Duque 15:20:00 [facility] Scientologist IRON LEVEL 2020-09-16 Dominic Duque 15:20:00 [facility] Scientologist FOLATE LEVEL 2020-09-16 Dominic Duque 15:20:00 [facility] Scientologist VITAMIN B12 LEVEL 2020-09-16 Dominic Duque 15:20:00 [facility] Scientologist FLUZONE HIGH-DOSE QUAD PF (0.7ML 2020-09-16 Anthony Duque SYRINGE) 15:00:00 [facility] Scientologist HEMOGLOBIN A1C 2020-07-03 Dominic Duque 14:21:00 [facility] Scientologist LIPID PANEL 2020-07-03 Dominic Duque 14:21:00 [facility] Scientologist CT LUMBAR SPINE WO CONTRAST 2020-01-18 Shanelle Mcwilliams ton 13:42:00 Scientologist COMPREHENSIVE METABOLIC PANEL 2020-01-10 Shanelle Mcwilliams [place] 15:57:00 Scientologist CBC WITH PLATELET AND DIFFERENTIAL 2019-10-12 Dominic Duque 15:05:00 [facility] Scientologist SURGICAL PATHOLOGY REQUEST 2019-09-27 Neal Salmon ton 11:54:00 Ayush Scientologist COLONOSCOPY 2019-09-27 Neal Salmon 11:32:00 Ayush Scientologist ESOPHAGOGASTRODUODENOSCOPY (EGD) 2019-09-27 Chago Salmon 11:32:00 Ayush Scientologist POC GLUCOSE 2019-09-27 Neal Salmon 11:29:00 Ayush Scientologist ECG 12-LEAD 2019-09-27 Neal Salmon 10:10:14 Ayush Scientologist Plan of Care Planned Activity Planned Date Details Comments Source Future Scheduled 2029-11-06 COLONOSCOPY [facility] Test 00:00:00 SCREENING [code = Scientologist COLONOSCOPY SCREENING] Future Scheduled 2021-09-16 65+ PNEUMOCOCCAL Postponed from [place] Test 00:00:00 VACCINE (1 of - 2012 Scientologist PPSV23) [code = 65+ (Patient Refused) PNEUMOCOCCAL VACCINE (1 of - PPSV23)] Future Scheduled 2021-09-16 SHINGLES VACCINES Postponed from [place] Test 00:00:00 (#1) [code = 1997 Scientologist SHINGLES VACCINES (Patient Refused) (#1)] Future Scheduled 2021-09-09 DIABETES: RETINAL [place] Test 00:00:00 EYE EXAM [code = Scientologist DIABETES: RETINAL EYE EXAM] Future Scheduled 2021-07-03 DIABETIC FOOT EXAM [place] Test 00:00:00 [code = DIABETIC Scientologist FOOT EXAM] Future Scheduled 2018-02-09 URINE MICROALBUMIN [place] Test 00:00:00 [code = URINE Scientologist MICROALBUMIN] Encounters Start End Encounter Admission Attending Care Care Encounter Source Date/Time Date/Time Type Type Clinicians Facility Department ID 2020-09-16 2020-09-16 Outpatient LINGAMFELTE [facility] [id number] [place] 00:00:00 00:00:00 R, R. [address] 2020-07-03 2020-07-03 Outpatient [facility] [id number] [place] 00:00:00 00:00:[address] 2020-05-07 2020-05-07 Outpatient [facility] [id number] [place] 00:00:00 00:00:[address] 2020-01-18 2020-01-18 Outpatient CORKY [facility] [id number] [place] 00:00:00 00:00:00 SHANELLE [address] 2019-09-27 2019-09-27 Outpatient MILES, [facility] [id number] [place] 00:00:00 00:00:00 NEAL [address] Results Test Description Test Time Test Comments Results Result Comments Source Vitamin B12 level 2020-09-17 13:44:00 Test Item Value Reference Range Interpretation Comme nts Vitamin B12 (test code = 2132-9) >2000 200-1100 H ASHISH (test code = ASHISH) FASTING:NOFASTING: NO RAC (test code = RAC) Performing Organization Information: Site ID: RGA Name: [facility] Address: [address] [place] [address] Director: Gibran Richardson Lab Interpretation (test code = Abnormal 44433-0) [facility]2020-10-20 13:44:00 Test Item Value Reference Range Interpretation Comments Folate (test 20.5 ng/mL code = 2284-8) Refer ence Range Lo w: <3.4 Borderline: 3.4-5.4 Normal: >5.4 ASHISH (test code FASTING:NOFASTING: NO = ASHISH) RAC (test code Performing = RAC) Organization Information: Site ID: RGA Name: [facility] Address: [address] [place] [address] Director: Gibran Richardson [facility]2020-10-20 13:44:00 Test Item Value Reference Range Interpretation Comments Iron level (test 54 50- 180 mcg/dL code = 2498-4) ASHISH (test code = FASTING:NOFASTING: NO ASHISH) RAC (test code = Performing Organization RAC) Information: Site ID: RGA Name: [facility] Address: [address] [place] [id number] Director: Gibran Richardson [facility] with platelet and [id number] 13:44:00 Test Item Value Reference Range Interpretation Comments WBC (test code = 7.5 3.8- 10.8 6690-2) Thousand/uL RBC (test code = 4.76 4.20- 5.80 789-8) Million/uL HGB (test code = 14.7 g/dL 13.2-17.1 718-7) HCT (test code = 42.5 % 38.5-50 4544-3) MCV (test code = 89.3 fL 80-100 787-2) MCH (test code = 30.9 pg 27-33 785-6) MCHC (test code = 34.6 g/dL 32-36 786-4) RDW (test code = 14.5 % 11-15 788-0) Platelet count (test 219 140- 400 code = 777-3) Thousand/uL MPV (test code = 11.8 fL 7.5-12.5 776-5) Neutrophils, absolute 5183 1,500 - 7,800 (test code = 751-8) cells/uL Lymphocytes, absolute 1553 850- 3,900 (test code = 731-0) cells/uL Monocytes, absolute 630 200- 950 cells/uL (test code = 742-7) Eosinophils, absolute 83 15- 500 cells/uL (test code = 711-2) Basophils, absolute 53 0- 200 cells/uL (test code = 704-7) Neutrophils (test 69.1 % code = 770-8) Lymphocytes (test 20.7 % code = 736-9) Monocytes (test code 8.4 % = 5905-5) Eosinophils (test 1.1 % code = 713-8) Basophils + RC (test 0.7 % code = 706-2) ASHISH (test code = ASHISH) FASTING:NOFASTING: NO RAC (test code = RAC) Performing Organization Information: Site ID: RGA Name: [facility] Address: [address] [place] [id number] Director: Gibran Richardson [place] MethodistFluzokatheryn High-Dose Quad PF (0.7mL syringe)2020-09-16 15:00:00 Test Item Value Reference Range Interpretation Comments Lab Interpretation (test code = Normal 51584-9) [place] MethodistLipid [id number] 02:38:00 Test Item Value Reference Range Interpretation Comments Cholesterol, total 128 mg/dL <200 (test code = 2093-3) HDL cholesterol 29 mg/dL > OR = 40 L (test code = 2085-9) Triglycerides (test 107 mg/dL <150 code = 2571-8) LDL cholesterol 80 mg/dL (calc) Reference ra nge: calculated (test <100 Desira ble code = 23656-2) range <100 m g/dL for primary prevention; <7 0 mg/dL for patients with C HD or diabetic patients with > or = 2 CHD risk factors. LDL-C is now calculated using the Amber calculation, which is a validated novel method providin g better accuracy than the Friedewald equation in the estimation of LDL-C. Leroy Hubbard S et al. VANESSA. 2013;310(19): 4739-3070 (http://educati on .True Office .com/faq/JCQ358 ) Cholesterol/HDL 4.4 <5.0 (calc) ratio (test code = 9830-1) Non-HDL cholesterol 99 <130 mg/dL For gilson ents with (test code = (calc) diabetes plus 1 40009-0) major ASCVD ris k factor, treatin g to a non-HDL-C goal of <100 mg/dL (LDL-C of <70 mg/dL) is considered a therapeutic option. ASHISH (test code = FASTING:YESFASTING ASHISH) : YES RAC (test code = Performing RAC) Organization Information: Site ID: RGA Name: [facility] Lab Address: [address] [place] [id number] Director: Gibran Richradson Lab Interpretation Abnormal (test code = 44600-9) [place] MethodistHemoglobin [id number] 02:38:00 Test Item Value Reference Interpretation Comments Range Hemoglobin A1C (test 7.3 <5.7 % of H For cielo eone without code = 4548-4) total Hgb known diabete s, a hemoglobin A1cv alue of 6.5% or grea ter indicates that they may have diabet es and this should be confirmed with a follow-up test. For someone with kn own diabetes, a jagruti ue <7% indicates t hat their diabetes is well controlled and a value greater than or equal t o 7% indicates suboptimal cont rol. A1c targets xavi uld be individualiz ed based on durati on of diabetes, ag e, comorbid conditions, and other considerations. Currently, no consensus exist s regarding use ofhemoglobin A1 c for diagnosis o f diabetes for children. ASHISH (test code = FASTING:YESFASTIN ASHISH) G: YES RAC (test code = Performing RAC) Organization Information: Site ID: RGA Name: [facility] Address: [address] [place] [id number] Director: Gibran Richardson Lab Interpretation Abnormal (test code = 83333-2) [place] MethodistCT Lumbar Spine Wo [id number] 14:23:10Hm Interface, Radiology Results - 01/18/2020 2:26 PM CSTEXAMINATION: CT LUMBAR SPINE WO CONTRASTCT IMAGING WAS PERFORMED WITH ITERATIVE RECONSTRUCTION TECHNIQUE AND/OR AUTOMATED EXPOSURE CONTROL TO REDUCE RADIATION DOSE.CLINICAL HISTORY: M48.061 Spinal stenosis lumbar region without neurogenic claudication, M25.552 Pain in left hip, Lumbar stenosis. Right-sided back pain left hip painCOMPARISON: None.FINDINGS: L5-S1: There is marked spondylosis, moderate disc space narrowing and vacuum disc phenomena greatest laterally on the left. There are moderate degenerative and hypertrophic changes the facet joint on the left and to a lesser degree on the right. There is mild dorsal spondylosis and bulging of the disc extending into the neural foramen on the left with moderate to marked left foraminal stenosis. There is mild foraminal stenosis on the right side. There is no spinal canal stenosis.There are mild degenerative changes in the sacroiliac joints.L4-5: There are postoperative moser inotomy changes on the left. There is slight lateral subluxation of L4 in relation L5 towards the left. There is marked spondylosis, mild disc space narrowing and vacuum disc phenomena on the right. There is mild dorsal spondylosis and bulging of the disc. There are mild degenerative changes in the facet joints. There is moderate lateral recess stenosis of L5 greater on the left and there is marked lateral recess stenosis on the left at L4 with moderate stenosis right. There is moderate to marked foraminal stenosis bilaterally particularly on the left.L3-4: There is marked disc space narrowing, spondylosis and degenerative change in the disc [...] anterior superior aspect of the centrum of L4.L2- 3: There is moderate to marked spondylosis laterally on the right and minimal vacuum disc phenomenon the right. Minimal dorsal bulging of the disc and a possible minimal subarticular protrusion on the right. There is mild to moderate foraminal stenosis on the right.L1-2: There is moderate moderate spondylosis without significantstenosis.T12-L1: There is a moderate spondylosis without stenosis.T11-12: There is a marked spondylosis, moderate disc space narrowing and degenerative change in the disc laterally on the left. There is a moderate to marked foraminal stenosis on the left.IMPRESSION:Lumbar levoscoliosis, marked spondylosis and postoperative changes. There is spinal canal stenosis at L3-4. There is multilevel foraminalstenosis bilaterally.[facility]-[id number] MethodistComprehensive metabolic [id number] 03:47:00 Test Item Value Reference Interpretation Comments Range Glucose (test code 142 mg/dL 65-99 H Fasting = 2345-7) reference inter jagruti For someone wit hout known diabetes, a glucosevalue >1 25 mg/dL indicates that they may havediabetes an d this should be confirmed with afollow-up test . BUN (test code = 19 mg/dL 06-22 3094-0) Creatinine (test 1.10 mg/dL 0.7-1.18 For patient s >49 code = 2160-0) years of age, the reference limit for Creatinine is approximately 1 3% higher for peopleidentifie d as -Joy n. EGFR Non-Afr. 67 > OR = 60 Barbadian (test code mL/min/1.73m2 = 2775) EGFR 77 > OR = 60 Barbadian (test code mL/min/1.73m2 = 76163-1) BUN/creatinine NOT APPLICABLE (calc) ratio (test code = 3097-3) Sodium (test code = 138 mmol/L 885-790 8245-2) Potassium (test 4.5 mmol/L 3.5-5.3 code = 2823-3) Chloride (test code 101 mmol/L 98-110 = 2075-0) CO2 (test code = 31 mmol/L 20-32 2027-9) Calcium (test code 9.9 mg/dL 8.6-10.3 = 78556-9) Protein (test code 7.1 g/dL 6.1-8.1 = 2885-2) Albumin, S (test 3.9 g/dL 3.6-5.1 code = 1751-7) Globulin, total 3.2 1.9- 3.7 g/dL (test code = (calc) 86365-3) Albumin/globulin 1.2 1.0- 2.5 ratio (test code = (calc) 1759-0) Total bilirubin 0.7 mg/dL 0.2-1.2 (test code = 1975-2) Alkaline 76 U/L 35-144 phosphatase (test code = 6768-6) AST (test code = 16 U/L 10-35 1920-8) ALT (test code = 20 U/L 9-46 1742-6) ASHISH (test code = FASTING:YESFASTIN ASHISH) G: YES RAC (test code = Performing RAC) Organization Information: Site ID: [id number] Name: [facility] Address: [address] [place] [address] Director: Gibran Richardson Lab Interpretation Abnormal (test code = 40701-4) [facility] [id number] 15:19:05 Test Item Value Reference Range Interpretation Comments Case number (test code = [id number]) Surgical pathology See link below for report (test code = PDF Lab Report [id number]) Result status (test code This is Final Report = [id number]) for [id number] [facility] [id number] 11:36:59 Test Item Value Reference Range Interpretation Comments POC glucose (test code = 141 mg/dL 65-99 H Met er ID: [id number]) [id number] tor: Aniket Cabrera Lab Interpretation (test Abnormal code = 20248-1) [facility] 12 [id number] 11:23:12 Test Item Value Reference Range Interpretation Comments Ventricular rate 82 (test code = 253) Atrial rate (test 82 code = 255) OH interval (test 160 code = 266) QRSD interval (test 136 code = 260) QT interval (test 422 code = 264) QTC interval (test 493 code = 265) P axis 1 (test code = 18 267) QRS axis 1 (test code -21 = 268) T wave axis (test 153 code = 270) EKG impression (test Demand pacemaker, code = 273) interpretation is based on intrinsic rhythm-Sinus rhythm with marked sinus arrhythmia with premature ventricular complexes or fusion complexes with ventricular escape [id number]-Ewsnuoog g-Kqckp-Xpmipibh ECG-In automated comparison with ECG of 02-JUN-2018 09:34,-Electronic demand pacing is now present-fusion complexes are now present-premature ventricular complexes are now present-Sinus rhythm is now with ventricular escape [id number]-[id number]-Hfglenef n-White is now present- Golden Serrano
--- NOTE | 2020-09-27 16:30 | RAD REPORT ---
EXAM DESCRIPTION: CT - Stone Protocol - 09/27/2020 4:04 pm CLINICAL HISTORY: Abdominal pain. COMPARISON: None. TECHNIQUE: Computed axial tomography of the abdomen pelvis was obtained without oral or IV contrast. Lack of IV and oral contrast limits evaluation of solid organs, bowel, and vessels. Coronal reformat ana images were obtained and reviewed. All CT scans are performed using dose optimization technique as appropriate and may include automated exposure control or mA/KV adjustment according to patient size. FINDINGS: A renal calculus is not seen. An ureteral calculus is not noted. A bladder calculus is not present. 11 millimeter low to intermediate density mass extends off of the lower pole left kidney The gallbladder is distended. It contains multiple small gallstones. The liver, spleen, pancreas and adrenals appear grossly normal There is no evidence of diverticulitis. Spondylosis involves the lumbar spine. Chronic appearing inte rstitial pulmonary opacities. IMPRESSION: Negative for a genitourinary calculus Cholelithiasis. Gallbladder distention 11 millimeter low to intermediate density mass extends off the lower pole left kidney. Nonemergent re nal ultrasound recommended for further evaluation
[2020-09-27] MEDS ORDERED: MEPERIDINE HCL 50 MG/ML ONE (17:46)
[2020-09-27 18:21] LABS: Absolute Lymphocytes (CBC) 1.1 K/uL (0.7-4.9); Hematocrit 47.8 % (39.6-49.0); Lymphocytes % 11.8 % (15.3-44.8); MPV 9.7 fL (7.6-11.3); RBC Red Blood Cell Count 5.25 M/uL (4.33-5.43)
[2020-09-27 18:37] LABS: Albumin 3.7 g/dL (3.4-5.0); Bilirubin Direct 0.3 mg/dL (0-0.2); Bilirubin Total 0.8 mg/dL (0.2-1.0); Protein, Total 8.2 g/dL (6.4-8.2)
[2020-09-27] MEDS ORDERED: D50W 25 GM/50 ML SYRINGE/VIAL IV ONE (19:17)
--- NOTE | 2020-09-27 19:49 | RAD REPORT ---
EXAM DESCRIPTION: US - Abdomen Exam Complete - 09/27/2020 7:21 pm CLINICAL HISTORY: Abdominal pain COMPARISON: September 27, 2020 cat scan FINDINGS: The liver has a normal echotexture. The gallbladder is distended. It contains a large amount sludge. CT scan on the same date demonstrate d small gallstones. The gallbladder wall is not thickened. The biliary tree is normal caliber. The pancreas is normal in size and echotexture The right kidney measures 11 centimeters with a normal echotexture. The left kidney measures 11 centimeters with a normal echotexture. 1 centimeters cyst The spleen measures 11 centimeters. The abdominal aorta and inferior vena cava appear unremarkable IMPRESSION: Gallbladder distention Large amount of gallbladder sludge. Small gallstones. The gallbladder wall is not thickened
--- NOTE | 2020-09-27 19:53 | RAD REPORT ---
EXAM DESCRIPTION: US - Scrotum Testicles - 09/27/2020 7:22 pm CLINICAL HISTORY: Testicular pain COMPARISON: None FINDINGS: Right testicle measures 3.2 x 2.7 x 4.2 centimeters. Echotexture is homogeneous. Normal bl ood flow Left testicle measures 4.8 x 2.2 x 3.4 centimeters. Echotexture is homogeneous. Normal blood flow The epididymides are normal in size and echotexture. Normal blood flow is seen. 7 millimeter right spermatocele. 5 millimeter left spermatocele Small to moderate left hydrocele IMPRESSION: Small to moderate left hydrocele Small spermatoceles
--- NOTE | 2020-09-27 20:12 | ER ---
Nurse's Notes [facility] Name: Sander North Age: 75 yrs Sex: Male : 1945 Arrival Date: 09/27/2020 Time: 15:22 Bed 14 Private MD: Diagnosis: Calculus of gallbladder without cholecystitis without obstruction;Spermatocele of epididymis;Lower abdominal pain, unspecified;Hypoglycemia, unspecified Presentation: 09/27 15:34 Chief complaint: Patient states: "I am having sever pain in my lower right groin jd3 area.". Coronavirus screen: At this time, the client does not indicate any symptoms associated with coronavirus-19. Ebola Screen: Patient negative for fever greater than or equal to 101.5 degrees Fahrenheit, and additional compatible Ebola Virus Disease symptoms. Initial Sepsis Screen: Does the patient meet any 2 criteria? No. Patient's initial sepsis screen is negative. Does the patient have a suspected source of infection? No. Patient's initial sepsis screen is negative. Risk Assessment: Do you want to hurt yourself or someone else? Patient reports no desire to harm self or others. Onset of symptoms was September 27, 2020. 15:34 Method Of Arrival: Ambulatory jd3 15:34 Acuity: BRITTNEY 3 jd3 Historical: - Allergies: 15:36 PENICILLINS; jd3 - PMHx: 15:43 Diabetes - NIDDM; paralysis of sciatic nerve; Arthritis; back problems; Hypertension; jd3 High Cholesterol; CHF; Atrial Fib; GERD; - PSHx: 15:43 pacemaker; jd3 - Immunization history:: Adult Immunizations up to date. - Social history:: Smoking status: Patient reports the use of cigarette tobacco products, smokes one-half pack cigarettes per day. Screenin:15 Abuse screen: Denies threats or abuse. Denies injuries from another. Nutritional ca1 screening: No deficits noted. Tuberculosis screening: No symptoms or risk factors identified. Fall Risk None identified. Assessment: 16:15 General: Appears in no apparent distress. comfortable, Behavior is calm, cooperative, ca1 appropriate for age. Pain: Complains of pain in right inguinal area Pain radiates to groin Pain currently is 7 out of 10 on a pain scale. Pain began 0730AM Is intermittent. Neuro: Level of Consciousness is awake, alert, obeys commands, Oriented to person, place, time, situation. Cardiovascular: Heart tones S1 S2 present Capillary refill < 3 seconds Patient's skin is warm and dry. Respiratory: Airway is patent Respiratory effort is even, unlabored, Respiratory pattern is regular, symmetrical, Breath sounds are clear bilaterally. GI: Abdomen is round non-distended, Bowel sounds present X 4 quads. Abd is soft and non tender X 4 quads. : No signs and/or symptoms were reported regarding the genitourinary system. EENT: No signs and/or symptoms were reported regarding the EENT system. Derm: Skin is intact, is healthy with good turgor, Skin is pink, warm \\T\\ dry. Musculoskeletal: Circulation, motion, and sensation intact. Capillary refill < 3 seconds. 17:15 Reassessment: Patient appears in no apparent distress at this time. Patient and/or ca1 family updated on plan of care and expected duration. Pain level reassessed. Patient is alert, oriented x 3, equal unlabored respirations, skin warm/dry/pink. 18:20 Reassessment: Patient appears in no apparent distress at this time. Patient and/or ca1 family updated on plan of care and expected duration. Pain level reassessed. Patient is alert, oriented x 3, equal unlabored respirations, skin warm/dry/pink. 19:18 Reassessment: Patient appears in no apparent distress at this time. Patient and/or ca1 family updated on plan of care and expected duration. Pain level reassessed. Patient is alert, oriented x 3, equal unlabored respirations, skin warm/dry/pink. 20:02 Reassessment: Patient appears in no apparent distress at this time. Patient and/or ca1 family updated on plan of care and expected duration. Pain level reassessed. Patient is alert, oriented x 3, equal unlabored respirations, skin warm/dry/pink. 20:48 Reassessment: Patient appears in no apparent distress at this time. Patient and/or ca1 family updated on plan of care and expected duration. Pain level reassessed. Patient is alert, oriented x 3, equal unlabored respirations, skin warm/dry/pink. Vital Signs: 15:36 BP 118 / 70; Pulse 90; Resp 16 S; Temp 98.5(O); Pulse Ox 97% on R/A; Weight 82.1 kg jd3 (R); Height 5 ft. 10 in. (177.80 cm) (R); Pain 6/10; 16:31 BP 121 / 75; Pulse 87; Resp 17; Pulse Ox 95% on R/A; vg1 17:30 BP 117 / 67; Pulse 83; Resp 17 S; Pulse Ox 95% on R/A; ca1 18:30 BP 118 / 70; Pulse 85; Resp 16 S; Pulse Ox 95% on R/A; ca1 19:30 BP 124 / 75; Pulse 85; Resp 17 S; Pulse Ox 95% on R/A; ca1 20:38 BP 120 / 74; Pulse 81; Resp 16 S; Pulse Ox 95% on R/A; ca1 15:36 Body Mass Index 25.97 (82.10 kg, 177.80 cm) jd3 ED Course: 15:22 Patient arrived in ED. as 15:35 Triage completed. jd3 15:38 Arm band placed on. jd3 15:45 Paula Mcarthur FNP-C is PHCP. snw 15:45 Bebeto Vora MD is Attending Physician. snw 16:04 CT Stone Protocol In Process Unspecified. EDMS 16:15 Patient has correct armband on for positive identification. Placed in gown. Bed in low ca1 position. Call light in reach. Side rails up X 1. Pulse ox on. NIBP on. Warm blanket given. 16:23 Heather Rock, RN is Primary Nurse. ca1 17:37 Inserted saline lock: 20 gauge in right antecubital area, using aseptic technique. dh4 Blood collected. 19:22 US Abdomen Complete In Process Unspecified. EDMS 19:22 US Scrotum Testicles In Process Unspecified. EDMS 20:48 No provider procedures requiring assistance completed. IV discontinued, intact, ca1 bleeding controlled, No redness/swelling at site. Pressure dressing applied. Administered Medications: 17:39 Drug: Demerol 50 mg {Note: rass 0.} Route: IVP; Site: right antecubital; ca1 18:30 Follow up: Response: No adverse reaction; Pain is decreased; RASS: Alert and Calm (0) ca1 19:07 Drug: D50W 25 ml Route: IVP; Site: right antecubital; ca1 20:30 Follow up: Response: No adverse reaction; Blood sugar is elevated ca1 20:23 Drug: TORadol - Ketorolac 15 mg Route: IVP; Site: right antecubital; ca1 20:40 Follow up: Response: No adverse reaction; Pain is decreased ca1 20:25 Drug: [place] 5 mg-325 mg 1 tabs {Note: rass 0.} Route: PO; ca1 20:40 Follow up: Response: No adverse reaction; Pain is decreased; RASS: Alert and Calm (0) ca1 Outcome: 20:11 Discharge ordered by MD. whitt 20:49 Discharged to home ambulatory. ca1 20:49 Condition: stable 20:49 Discharge instructions given to patient, Instructed on discharge instructions, follow up and referral plans. no drinking with medication, no driving heavy equipment, medication usage, Demonstrated understanding of instructions, follow-up care, medications, Prescriptions given X 1. 20:50 Patient left the ED. ca1 Signatures: Dispatcher [employer] EDMS Paula Mcarthur, MEJIA-C TELEPHONE ASSEMBLER-Keely Manning Jonathon, RN RN jd3 Heather Rock RN RN ca1 Sarath Lombardi 4 Cesia Cardenas RN RN vg1 Corrections: (The following items were deleted from the chart) 20:02 20:02 BP 124 / 75; Pulse 85bpm; Resp 17bpm; Spontaneous; Pulse Ox 95% RA; ca1 ca1
--- NOTE | 2020-09-27 20:12 | EDPHYS ---
Physician Documentation [facility] Name: Sander North Age: 75 yrs Sex: Male : 1945 Arrival Date: 09/27/2020 Time: 15:22 Bed 14 Private MD: ED Physician Bebeto Vora HPI: 09/27 18:46 This 75 yrs old Male presents to ER via Ambulatory with complaints of snw Abdominal Pain, Testicular Pain. 18:46 The patient presents with abdominal pain right lower quadrant. Onset: The snw symptoms/episode began/occurred suddenly, today. The symptoms radiate to testicle. Associated signs and symptoms: Pertinent positives: nausea. The symptoms are described as constant. Severity of pain: At its worst the pain was moderate severe in the emergency department the pain pt states he is unable to get comfortable. The patient has not experienced similar symptoms in the past. It is unknown whether or not the patient has recently seen a physician. Historical: - Allergies: 15:36 PENICILLINS; jd3 - PMHx: 15:43 Diabetes - NIDDM; paralysis of sciatic nerve; Arthritis; back problems; Hypertension; jd3 High Cholesterol; CHF; Atrial Fib; GERD; - PSHx: 15:43 pacemaker; jd3 - Immunization history:: Adult Immunizations up to date. - Social history:: Smoking status: Patient reports the use of cigarette tobacco products, smokes one-half pack cigarettes per day. ROS: 18:44 Constitutional: Negative for fever, chills, and weight loss, Eyes: Negative for injury, snw pain, redness, and discharge, ENT: Negative for injury, pain, and discharge, Neck: Negative for injury, pain, and swelling, Cardiovascular: Negative for chest pain, palpitations, and edema, Respiratory: Negative for shortness of breath, cough, wheezing, and pleuritic chest pain, Back: Negative for injury and pain, MS/Extremity: Negative for injury and deformity, Skin: Negative for injury, rash, and discoloration, Neuro: Negative for headache, weakness, numbness, tingling, and seizure, Psych: Negative for depression, anxiety, suicide ideation, homicidal ideation, and hallucinations. 18:44 Abdomen/GI: Positive for abdominal pain, nausea, of the pelvis and right inguinal area. 18:44 : Positive for testicular pain Exam: 18:44 Constitutional: This is a well developed, well nourished patient who is awake, alert, snw and in no acute distress. Head/Face: Normocephalic, atraumatic. Eyes: Pupils equal round and reactive to light, extra-ocular motions intact. Lids and lashes normal. Conjunctiva and sclera are non-icteric and not injected. Cornea within normal limits. Periorbital areas with no swelling, redness, or edema. ENT: Nares patent. No nasal discharge, no septal abnormalities noted. Tympanic membranes are normal and external auditory canals are clear. Oropharynx with no redness, swelling, or masses, exudates, or evidence of obstruction, uvula midline. Mucous membranes moist. Neck: Trachea midline, no thyromegaly or masses palpated, and no cervical lymphadenopathy. Supple, full range of motion without nuchal rigidity, or vertebral point tenderness. No Meningismus. Chest/axilla: Normal chest wall appearance and motion. Nontender with no deformity. No lesions are appreciated. Cardiovascular: Regular rate and rhythm with a normal S1 and S2. No gallops, murmurs, or rubs. Normal PMI, no JVD. No pulse deficits. Respiratory: Lungs have equal breath sounds bilaterally, clear to auscultation and percussion. No rales, rhonchi or wheezes noted. No increased work of breathing, no retractions or nasal flaring. Back: No spinal tenderness. No costovertebral tenderness. Full range of motion. Male : Normal genitalia with no discharge or lesions. Tenderness to right testicle. Skin: Warm, dry with normal turgor. Normal color with no rashes, no lesions, and no evidence of cellulitis. MS/ Extremity: Pulses equal, no cyanosis. Neurovascular intact. Full, normal range of motion. Neuro: Awake and alert, GCS 15, oriented to person, place, time, and situation. Cranial nerves II-XII grossly intact. Motor strength 5/5 in all extremities. Sensory grossly intact. Cerebellar exam normal. Normal gait. Psych: Awake, alert, with orientation to person, place and time. Behavior, mood, and affect are within normal limits. 18:44 Abdomen/GI: Inspection: abdomen appears normal, Bowel sounds: normal, Palpation: mild abdominal tenderness, moderate abdominal tenderness, in the groin and right inguinal area. Vital Signs: 15:36 BP 118 / 70; Pulse 90; Resp 16 S; Temp 98.5(O); Pulse Ox 97% on R/A; Weight 82.1 kg jd3 (R); Height 5 ft. 10 in. (177.80 cm) (R); Pain 6/10; 16:31 BP 121 / 75; Pulse 87; Resp 17; Pulse Ox 95% on R/A; vg1 17:30 BP 117 / 67; Pulse 83; Resp 17 S; Pulse Ox 95% on R/A; ca1 18:30 BP 118 / 70; Pulse 85; Resp 16 S; Pulse Ox 95% on R/A; ca1 19:30 BP 124 / 75; Pulse 85; Resp 17 S; Pulse Ox 95% on R/A; ca1 20:38 BP 120 / 74; Pulse 81; Resp 16 S; Pulse Ox 95% on R/A; ca1 15:36 Body Mass Index 25.97 (82.10 kg, 177.80 cm) jd3 MDM: 16:20 Patient medically screened. snw 20:14 Data reviewed: vital signs, nurses notes. Data interpreted: Pulse oximetry: on room air snw is 95 %. Interpretation: acceptable. Counseling: I had a detailed discussion with the patient and/or guardian regarding: the historical points, exam findings, and any diagnostic results supporting the discharge/admit diagnosis, lab results, radiology results, the need for outpatient follow up, to return to the emergency department if symptoms worsen or persist or if there are any questions or concerns that arise at home. Special discussion: Based on the history and exam findings, there is no indication for further emergent testing or inpatient evaluation. I discussed with the patient/guardian the need to see the primary care provider for further evaluation of the symptoms. 09/27 17:21 Order name: Basic Metabolic Panel; Complete Time: 18:44 snw 09/27 17:21 Order name: CBC with Diff; Complete Time: 18:26 snw 09/27 15:32 Order name: CT Stone Protocol; Complete Time: 17:03 snw 09/27 17:21 Order name: Hepatic Function; Complete Time: 18:44 snw 09/27 17:21 Order name: Lipase; Complete Time: 18:44 snw 09/27 20:35 Order name: Glucose, Ancillary Testing; Complete Time: 20:36 EDMS 09/27 17:04 Order name: US Abdomen Complete; Complete Time: 20:06 snw 09/27 17:21 Order name: US Scrotum Testicles; Complete Time: 20:06 snw 09/27 17:21 Order name: IV Saline Lock; Complete Time: 17:37 snw 09/27 17:21 Order name: Labs collected and sent; Complete Time: 17:37 snw 09/27 20:12 Order name: FSBS; Complete Time: 20:23 snw Administered Medications: 17:39 Drug: Demerol 50 mg {Note: rass 0.} Route: IVP; Site: right antecubital; ca1 18:30 Follow up: Response: No adverse reaction; Pain is decreased; RASS: Alert and Calm (0) ca1 19:07 Drug: D50W 25 ml Route: IVP; Site: right antecubital; ca1 20:30 Follow up: Response: No adverse reaction; Blood sugar is elevated ca1 20:23 Drug: TORadol - Ketorolac 15 mg Route: IVP; Site: right antecubital; ca1 20:40 Follow up: Response: No adverse reaction; Pain is decreased ca1 20:25 Drug: [place] 5 mg-325 mg 1 tabs {Note: rass 0.} Route: PO; ca1 20:40 Follow up: Response: No adverse reaction; Pain is decreased; RASS: Alert and Calm (0) ca1 Disposition: 09/27/20 20:11 Discharged to Home. Impression: Calculus of gallbladder without cholecystitis without obstruction, Spermatocele of epididymis, Lower abdominal pain, unspecified, Hypoglycemia, unspecified. - Condition is Stable. - Discharge Instructions: Abdominal Pain, Adult, Hypoglycemia, Cholelithiasis, Spermatocele. - Prescriptions for Ultram 50 mg Oral Tablet - take 1 tablet by ORAL route every 6 hours As needed; 12 tablet. - Medication Reconciliation Form, Thank You Letter, Antibiotic Education, Prescription Opioid Use form. - Follow up: Emergency Department; When: As needed; Reason: Worsening of condition. Follow up: Private Physician; When: 2 - 3 days; Reason: Recheck today's complaints, Continuance of care, Re-evaluation by your physician. Addendum: 09/29/2020 14:34 Co-signature as Attending Physician, Bebeot Vora MD I agree with the assessment and k dr plan of care. Signatures: Dispatcher [employer] EDMS Bebeto Vora MD MD kdr Waters, Shelly, TANKROOM WORKER-C TANKROOM WORKER-Csnw Abimael Cardoza, RN RN jd3 Heather Rock RN RN ca1 Corrections: (The following items were deleted from the chart) 09/27 20:13 20:11 09/27/2020 20:11 Discharged to Home. Impression: Calculus of gallbladder without snw cholecystitis without obstruction; Spermatocele of epididymis; Lower abdominal pain, unspecified. Condition is Stable. Forms are Medication Reconciliation Form, Thank You Letter, Antibiotic Education, Prescription Opioid Use. Follow up: Emergency Department; When: As needed; Reason: Worsening of condition. Follow up: Private Physician; When: 2 - 3 days; Reason: Recheck today's complaints, Continuance of care, Re-evaluation by your physician. snw 20:50 20:13 09/27/2020 20:11 Discharged to Home. Impression: Calculus of gallbladder without ca1 cholecystitis without obstruction; Spermatocele of epididymis; Lower abdominal pain, unspecified; Hypoglycemia, unspecified. Condition is Stable. Forms are Medication Reconciliation Form, Thank You Letter, Antibiotic Education, Prescription Opioid Use. Follow up: Emergency Department; When: As needed; Reason: Worsening of condition. Follow up: Private Physician; When: 2 - 3 days; Reason: Recheck today's complaints, Continuance of care, Re-evaluation by your physician. snw
[2020-09-27] MEDS ORDERED: HYDROCODONE/APAP 5/325 MG TAB ONE (20:33)
[2020-09-27] MEDS ORDERED: KETOROLAC 30 MG/ML INJ ONE (20:34)
[2020-09-27 21:30] VITALS: TEMP 98.5
[2020-09-27 21:32] VITALS: O2SAT 95
[2020-09-27 21:38] VITALS: BP 120/74
== END 2020-09-27 20:50 | disposition home or self-care (01) ==
LOC: ER 15:20
DX: K80.20 Calculus of gallbladder without cholecystitis without obstruction (principal); N43.40 Spermatocele of epididymis, unspecified; E11.649 Type 2 diabetes mellitus with hypoglycemia without coma; I10 Essential (primary) hypertension; F17.210 Nicotine dependence, cigarettes, uncomplicated; Z88.0 Allergy status to penicillin; Z95.0 Presence of cardiac pacemaker
CPT/HCPCS: 85025; 80048; 36415; 82947; 80076; 83690; 76377; 74176; 76700; 76870; 96375; 96374; 99284; J2175

== ENCOUNTER 2021-04-04 16:23 | Emergency (ER) | payer OTHER ==
--- OUTSIDE RECORDS SUMMARY | 2021-04-04 16:29 | XMS REPORT | Continuity of Care Document ---
:1945 Author Organization [facility] t Address 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 Attending Clinician Sheikh CHAUNCEY Attending Clinician Shaikh CHAUNCEY Attending Clinician Mele Gutiérrez MD Attending Clinician Vadim GROSSMAN Attending Clinician Essence Freeman MD Attending Clinician Jarrod Duque DO Attending Clinician Marcellus SHANNON Attending Clinician Unavailable Trisha Valentin MD Attending Clinician John Tellez MD Attending Clinician Robe Gutierrez DO Attending Clinician Faisal Baxter MD Attending Clinician Reilly Huitron Attending Clinician Mya Garner MD Attending Clinician Ana Cristina GROSSMAN, Juanito Attending Clinician Benjamin GROSSMAN Attending Clinician Vicente Whitman Attending Clinician Provider Attending Clinician Unavailable Danica GROSSMAN Attending Clinician Leonela RIVERA Attending Clinician Julio Branch MD Attending Clinician Dane Quigley MD Attending Clinician Kathi VAZQUEZ Attending Clinician Roel SHANNON, Wayne Attending Clinician Unavailable Poppy GROSSMAN Attending Clinician Asked, Pcp Attending Clinician Unavailable MILES Attending Clinician Unavailable Admitting Clinician Unavailable LAVERN Admitting Clinician Unavailable ANA CRISTINA Admitting Clinician Unavailable SARINA Admitting Clinician Unavailable MILES Admitting Clinician Unavailable Payers Payer Name Policy Type Policy Number Effective Date Expiration Date Haydee iniguez [id number] 2015 [facility] [id number] 00:00:00 [facility] /2016-Presen tMilitary Problems Condition Condition Condition Status Onset Resolution Last Treating Co mments Source Name Details Category Date Date Treatment Clinician Date Dehydratio Dehydratio Disease Active [facility] n n 4-19 [facility] 00:00: st Disorienta Disorienta Disease Active 2020- [facility] [place] tion tion 4-19 [facility]i 00:00: st 00 Cellulitis Cellulitis Disease Active [facility] of lower of lower 4-19 Method i extremity extremity 00:00: st 00 Hypotensio Hypotensio Disease Active 2020- H [place] n n 4-19 Methodi 00:00: st 00 Weight Weight Disease Active [facility] loss loss 4- Methodi 00:00: st 00 Confusion Confusion Disease Active Óscar ston 4- Methodi 00:00: st 00 Cardiogeni Cardiogeni Disease Active 2020- H [facility] c shock c shock 3 Methodi 00:00: st 00 Hyperglyce Hyperglyce Disease Active 2020- [facility] trent trent 2- Methodi 00:00: st 00 Acute on Acute on Disease Active [place] chronic chronic 2-21 [facility] clinical clinical 00:00: st systolic systolic 00 heart heart failure failure Acute Acute Disease Active [facility] congestive congestive 2-10 Me odi heart heart 00:00: st failure failure 00 S/P S/P Disease Active [facility] laparoscop laparoscop 1-05 Me odi ic ic 00:00: st cholecyste cholecyste 00 ctomy ctomy Right Right Disease Active 2019-11 [facility] lower lower 1-09 [facility] quadrant quadrant 00:00: st abdominal abdominal 00 pain pain Right Right Disease Active 2019-11 [facility] upper upper 1-09 [facility] quadrant quadrant 00:00: st abdominal abdominal 00 tenderness tenderness without without rebound rebound tenderness tenderness Foraminal Foraminal Disease Active Óscar ston stenosis stenosis 6-09 Method i of lumbar of lumbar 00:00: st region region 00 Chronic Chronic Disease Active [facility] left-sided left-sided 6-09 Me odi low back low back 00:00: st pain with pain with 00 left-sided left-sided sciatica sciatica Sleep Sleep Disease Active [facility] disorder disorder 2-13 Method i 00:00: st 00 Chronic Chronic Disease Active [facility] left hip left hip 2-12 Method i pain pain 00:00: st 00 Bilateral Bilateral Disease Active Óscar ston leg cramps leg cramps 2-12 Me odi 00:00: st 00 Anemia Anemia Disease Active 2018-11 [facility] 1-14 Methodi 00:00: st 00 RLS RLS Disease Active [facility] (restless (restless 7-11 Meth and[facility] legs legs 00:00: st syndrome) syndrome) 00 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 00:00: 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 without without macular macular edema edema associated associated with type with type 2 diabetes 2 diabetes mellitus mellitus Fatigue Fatigue Disease Active 2017-11 [facility] 0-23 Methodi 00:00: st 00 Bilateral Bilateral Disease Active Óscar ston pain of pain of 7-23 [facility] leg and leg and 00:00: st foot foot 00 Preoperati Preoperati Disease Active [facility] ve testing ve testing 7-06 Me thodi 00:00: st 00 Hypotensio Hypotensio Disease Active [facility] [place] n due to n due to 03-21 Method i drugs drugs 00:00: st 00 GERD with GERD with Disease Active Óscar bain esophagiti esophagiti 12-21 Me thodi s s 00:00: st 00 Depression Depression Disease Active 2016-11 [facility] screen screen 0 Methodi 00:00: st 00 Gait Gait Disease Active [facility] disorder disorder 08-24 Method i 00:00: st 00 Pacemaker Pacemaker Disease Active Óscar chengn 05-21 Methodi 00:00: st 00 Pain of Pain of Disease Active [facility] left hip left hip 05-19 Method i joint joint 00:00: st 00 Diabetic Diabetic Disease Active [place] neuropathy neuropathy 01-28 Me thodi 00:00: st 00 Dry skin Dry skin Disease Active [place] 01-28 [facility]i 00:00: st 00 Rash Rash Disease Active [facility] 01-28 [facility]i 00:00: st 00 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 01-28 Meth [facility] tremor tremor 00:00: st 00 Hyperchole Hyperchole Disease Active H [place] steremia steremia 01-28 Method i 00:00: st 00 Hypertensi Hypertensi Disease Active [facility] on on 01-28 Methodi 00:00: st 00 Injury Injury Disease Active [facility] 01-28 [facility]i 00:00: st 00 Pleurodyni Pleurodyni Disease Active [facility] a a 01-28 Methodi 00:00: st 00 Postnasal Postnasal Disease Active Óscar bain drip drip 01-28 Methodi 00:00: st 00 Rib pain Rib pain Disease Active [place] 01-28 Methodi 00:00: st 00 Sinusitis Sinusitis Disease Active Óscar ston 01-28 Methodi 00:00: st 00 Disordered Disordered Disease Active [facility] sleep sleep 01-28 Methodi 00:00: st 00 Spinal Spinal Disease Active [facility] stenosis stenosis 01-28 Method i of lumbar of lumbar 00:00: st region region 00 Tinea Tinea Disease Active [facility] cruris cruris 01-28 Methodi 00:00: st 00 Uncontroll Uncontroll Disease Active [facility] ed type 2 ed type 2 01-28 Meth [facility] diabetes diabetes 00:00: st mellitus mellitus 00 Calculus Calculus Disease Resolve 2019-112020-12-03 2020-12-03 [facility] of of d 01-05 00:00:00 15:09:00 Method i hiltonadde hiltonadde 00:00: st r r 00 Sludge in Sludge in Disease Resolve 2019-112020-12-03 2020-12-03 [facility] britta haroe d 12-07 00:00:00 15:08:58 Methodi r r 00:00: st 00 Allergies, Adverse Reactions, Alerts Allergy Allergy Status Severity Reaction(s) Onset Inactive Treating Comm ents Source Name Type Date Date Clinician Penicill Propensi Active Rash [place] ins ty to 01-28 Methodi adverse 00:00: st reaction 00 s to drug Family History Family Member Diagnosis Comments Start Date Stop Date Source Natural brother Diabetes [facility] ethodi Natural father Cancer [facility] thodist Natural mother Heart disease [facility] Social History Social Habit Start Date Stop Date Quantity Comments Source History of tobacco 1956-04-19 Current every Óscar ston [facility] use 00:00:00 day smoker Exposure to Not sure [facility] Metho dist SARS-CoV-2 (event) Cigarettes smoked 2021-03-28 2021-03-28 [facility] current (pack per 00:00:00 00:00:00 day) - Reported Cigarette 2021-03-28 2021-03-28 [facility] Method ist pack-years 00:00:00 00:00:00 Tobacco use and 2021-03-28 2021-03-28 Former user [facility] exposure 00:00:00 00:00:00 Alcohol intake 2021-03-28 2021-03-28 Current [facility] thodist 00:00:00 00:00:00 non-drinker of alcohol (finding) Tobacco Comment 2016-04-07 2016-04-07 tried 3-X , no [place] [facility] 00:00:00 00:00:00 workie Sex [birth year] M [facility] ethodist 00:00:00 00:00:00 Smoking Status Start Date Stop Date Source Current every day smoker 2021-03-28 00:00:00 Óscar Serrano Medications Ordered Filled Start Stop Current Ordering Indication Dosage Frequency Signature Comments Components Source Medication Medication Date Date Medication? Clinician (SIG) Name Name aspirin Yes 81mg QD Take 81 mg [place] (ECOTRIN) 4-30 by mouth Method i 81 MG 11:48: daily. 80 st enteric 01 mg 1 coated tablet tablet daily multivit Yes 1{tbl} QD 1 tablet Óscar taya with 4-30 daily. Methodi min-FA-lyco 11:48: Men's One s t pene 01 Daily 400-300 mcg tablet insulin Yes 10U Inject 10 [place] aspart 4-30 Units [facility]i (NOVOLOG 11:48: under the st FLEXPEN 01 skin. Per U-100 sliding INSULIN scale four SUBQ) times daily digOXIN Yes 125ug QD Take 125 [place] (LANOXIN) 4-30 mcg by Methodi 125 mcg 11:48: mouth st (0.125 mg) 01 daily. tablet metFORMIN Yes 2000mg QD Take 2,000 [facility] (GLUCOPHAGE 4-30 mg by Methodi ) 1,000 mg 11:48: mouth st tablet 01 daily with lunch. megestroL 2020- Yes 20mg QD Take 1 [place] (MEGACE) 20 03-28-29 tablet (20 M ethodi MG tablet 00:00: 23:59 mg total) st 00 :00 by mouth daily for 90 days. spironolact 2020- No 25mg QD Take 25 mg [facility] one 03-25-27 by mouth [facility] (ALDACTONE) 13:06: 00:[address] 25 MG 27 :00 tablet furosemide 2020- Yes 40mg Q.5D Take 1 [place] (LASIX) 40 03-25 05-27 tablet (40 Me thodi mg tablet 00:00: 23:59 mg total) st 00 :00 by mouth 2 (two) times a day for 30 days. midodrine 2020- Yes 10mg Q.[id number] Take 1 [facility] (PROAMATINE -27 05-12 [id number] tablet (10 Methodi ) 10 MG 00:00: 23:59 3D mg total) st tablet 00 :00 by mouth 3 (three) times a day for 15 days. doxycycline 2020- No 100mg Q.5D Take 1 Mark arrington (VIBRAMYCIN 427 05-02 capsule Meth and[facility] ) 100 MG 00:00: 23:59 ([address] capsule 00 :00 total) by mouth 2 (two) times a day with meals for 5 days. iron 2020- No Take by Golden rai,ps-F 03-17-19 mouth. Metho di A-B-C#12-chandler 19:25: 00:00 st cc 65 mg-65 29 :00 mg -1,000 mcg (24) tablet insulin 2020- No 65U QD Inject 65 [place] GLARGINE 03-17- Units Methodi (LANTUS) 19:25: 00:[address] 100 unit/mL 26 :00 skin every injection morning. (vial) carvediloL 2020- No 3.125mg Q.5D Take 3.125 Golden (COREG) 03-17- mg by Methodi 3.125 MG 19:25: 00:[address] tablet 26 :00 (two) times a day with meals. metOLazone 2020- No 2.5mg QD Take 1 Óscar ston (ZAROXOLYN) 02-18 tablet Metho di 2.5 MG 00:00: 00:00 (2.[address] tablet 00 :00 total) by mouth daily for 30 days. pantoprazol Yes Take 1 [place] e 3-08 tablet by Methodi (PROTONIX) 00:00: mouth st 40 MG EC 00 every day tablet atorvastati 2020- No Take 1 Óscar ston n (LIPITOR) 02-03-30 tablet by Me oswald 80 MG 00:00: 00:[address] tablet 00 :00 nightly metOLazone 2020- No 2.5mg QD Take 1 Óscar ston (ZAROXOLYN) 01-28-23 tablet Metho di 2.5 MG 00:00: 00:00 (2.[address] tablet 00 :00 total) by mouth daily for 30 days. metOLazone 2020- No 2.5mg QD Take 1 Óscar prospern (ZAROXOLYN) 01-28 tablet Metho di 2.5 MG 00:00: 00:00 (2.[address] tablet 00 :00 total) by mouth daily for 30 days. midodrine 2020- No 10mg Q.[id number] Take 1 [facility] (PROAMATINE 01-27 [id number] tablet (10 Methodi ) 10 MG 00:00: 23:59 3D mg total) st tablet 00 :00 by mouth every 8 (eight) hours for 30 days. furosemide 2020- No 80mg Q.5D Take 2 [place] (LASIX) 40 01-27 tablets Metho di mg tablet 00:00: 23:59 ([address] 00 :00 total) by mouth 2 (two) times a day for 30 days. furosemide 2020- No 80mg Q.5D Take 2 [place] (LASIX) 40 01-27 tablets Metho di mg tablet 00:00: 00:00 ([address] 00 :00 total) by mouth 2 (two) times a day for 30 days. midodrine 2020- No 10mg Q.[id number] Take 1 [facility] (PROAMATINE 01-27 [id number] tablet (10 Methodi ) 10 MG 00:00: 00:00 3D mg total) st tablet 00 :00 by mouth every 8 (eight) hours for 30 days. furosemide 2020- No 40mg Q.5D Take 40 mg [facility] (LASIX) 80 01-14-16 by mouth 2 Me thodi mg tablet 13:28: 00:00 (two) st 47 :00 times a day. furosemide 2020- No 40mg QD Take 40 mg [facility] (LASIX) 40 2-16 02-16 by mouth Meth andrae mg tablet 11:17: 00:[address] 25 :00 furosemide 2020- No 40mg Q.5D Take 1 [place] (LASIX) 40 01-14- tablet (40 Me thodi mg tablet 00:00: 00:00 mg total) st 00 :00 by mouth 2 (two) times a day for 30 days. sacubitriL- 2020- No Q.5D Take by Mark nury valsartan 12-03-05 mouth 2 Method i (Entresto) 10:45: 00:00 (two) st 24-26 mg 57 :00 times a tablet per day. tablet HYDROcodone 2020- No acute pain 1{tbl} Q6H Take 1-2 [facility] -acetaminop 12-03-10 tablets by Humberto castrejon (Zapata) 00:00: 23:[address] 5-325 mg 00 :00 every 6 per tablet (six) hours as needed for moderate pain or severe pain for up to 5 days .acute pain. metFORMIN 2019-11- No 1000mg Q.5D Take 1,000 [facility] (GLUCOPHAGE 2-07 12-07 mg by Method i ) 1,000 mg 16:59: 00:[address] tablet 40 :00 (two) times a day with meals. cyanocobala 2019-11 No 1000ug QD Take 1,000 [facility] min 1000 2- 12-07 mcg by Methodi MCG tablet 16:59: 00:[address] 36 :00 nightly. pantoprazol 2019-11 No Take 1 Óscar ston e 11-30 03-08 tablet by Methodi (PROTONIX) 00:00: 00:[address] 40 MG EC 00 :00 every day tablet lidocaine Yes Apply 3 [place] (LIDODERM) 8-19 patch(es) Meth andrae 5 % 00:00: once daily st 00 for 12 hours on and 12 hours off as directed DULoxetine Yes 60mg QD Take 1 [place] (CYMBALTA) 8-05 capsule Method i 60 MG 00:00: ([address] capsule 00 total) by mouth daily. lisinopriL No Take 1 [place] (PRINIVIL) 07-03 04-30 tablet by Met nicholas 2.5 mg 00:00: 00:[address] tablet 00 :00 every day NOTE STRENGTH DECREASE atorvastati No 80mg QD Take 1 Óscar ston n (LIPITOR) 07-03 03-08 tablet (80 M ethodi 80 MG 00:00: 00:00 mg total) st tablet 00 :00 by mouth nightly. clonAZEPAM 2019- No 1mg QD Take 1 [place] (KlonoPIN) 07-03- tablet (1 Met hodi 1 MG tablet 00:00: 23:59 mg total) st 00 :00 by mouth nightly for 90 days. pantoprazol 2019- No Take 1 Óscar ston e 07-01- tablet by Methodi (PROTONIX) 00:00: 00:[address] 40 MG EC 00 :00 every day tablet ketoconazol 2020- No Q.5D Apply [place] (NIZORAL) 05-07 04-19 topically Me thodi 2 % cream 00:00: 00:00 2 (two) st 00 :00 times a day. DULoxetine 2019- No Take 1 [place] (CYMBALTA) 3 08-05 capsule by Me thodi 60 MG 00:00: 00:[address] capsule 00 :00 every day clonAZEPAM 2019- No Take 1 [place] (KlonoPIN) 1 08-05 tablet by Met hodi 1 MG tablet 00:00: 00:[address] 00 :00 every night at bedtime lisinopril 2019- No Take 1 [place] (PRINIVIL) 1-14 08-05 tablet by Met hodi 2.5 mg 00:00: 00:[address] tablet 00 :00 every day NOTE STRENGTH DECREASE pantoprazol 2018-11- No 40mg QD Take 1 Ócsar ston e 12-20-03 tablet (40 Methodi (PROTONIX) 00:00: 00:00 mg total) s t 40 MG EC 00 :00 by mouth tablet daily. atorvastati 2019- No 80mg QD Take 1 Óscar ston n (LIPITOR) 5-16 08-05 tablet (80 M ethodi 80 MG 00:00: 00:00 mg total) st tablet 00 :00 by mouth nightly. lidocaine 2019- No Apply 3 [place] (LIDODERM) 03-16-19 patches Metho di 5 % 00:00: 00:[address] 00 :00 for 12 hours on and 12 hours off as directed. FREESTYLE Yes Use to [place] LITE STRIPS 6- check Methodi strip test 00:00: blood st strips 00 sugar four times daily BD Yes Use as [facility] ULTRA-FINE 6-09 directed Metho di SHLOMO PEN 00:00: twice [...] HIGH-DOSE PF 2020-09-16 Completed [place] 00:00:00 [facility] FLUZONE HIGH-DOSE PF 2018-09-20 Completed [place] 00:00:00 [facility] FLUZONE HIGH-DOSE PF 2016-11-17 Completed [place] 00:00:00 [facility] FLUZONE HIGH-DOSE PF 2015-11-18 Completed [place] 00:00:00 [facility] FLUZONE HIGH-DOSE PF 2014-08-29 Completed [facility] 00:00:00 [facility] Vital Signs Vital Name Observation Time Observation Value Comments Source Systolic blood 2021-03-28 11:45:00 88 mm[Hg] Donny n [facility] pressure Diastolic blood 2021-03-28 11:45:00 47 mm[Hg] Maira on [facility] pressure Heart rate 2021-03-28 11:45:00 71 /min Golden Serrano Body height 2021-03-28 11:45:00 177.8 cm Golden Serrano Body weight 2021-03-28 11:45:00 64.501 kg Golden Serrano BMI 2021-03-28 11:45:00 20.40 kg/m2 Golden Serrano Body temperature 2021-03-25 07:19:37 36.67 Estee Carolina ton [facility] Respiratory rate 2021-03-25 07:19:37 15 /min Carolina Chanist Oxygen saturation in 2021-03-25 07:19:37 91 /min Golden Serrano Arterial blood by Pulse oximetry Procedures Procedure Date / Time Performing Clinician Source Performed CV PACEMAKER DEFIB ILR 2021-04-01 00:00:00 Mitali Diaz [facility] INTERROGATION POC GLUCOSE 2021-03-25 07:20:00 Steve rFeeman Donny rodriguez [facility] COMPREHENSIVE METABOLIC 2021-03-25 04:15:00 Ecoh Gutiérrez PANEL HC COMPLETE BLD COUNT 2021-03-25 04:15:00 Echo Gutiérrez W/AUTO DIFF ESTIMATED GFR 2021-03-25 04:15:00 Echo Gutiérrez POC GLUCOSE 2021-03-24 19:26:00 Echo Gutiérrez POC GLUCOSE 2021-03-24 16:20:00 Echo Gutiérrez SODIUM LEVEL 2021-03-24 15:00:00 Tosha Hollis odist POC GLUCOSE 2021-03-24 12:14:00 Echo Gutiérrez HC COMPLETE BLD COUNT 2021-03-24 09:49:00 Echo Gutiérrez W/AUTO DIFF URINE CULTURE 2021-03-24 08:28:00 Jay Pino odailin URINALYSIS SCREEN AND 2021-03-24 08:26:00 Jay Pino MICROSCOPY, WITH REFLEX TO CULTURE SODIUM LEVEL, URINE, 2021-03-24 08:26:00 Tosha Hollis RANDOM OSMOLALITY, URINE 2021-03-24 08:26:00 Tosha Hollis Me thodist POC GLUCOSE 2021-03-24 07:08:00 Echo Gutiérrez DIGOXIN LEVEL 2021-03-24 05:03:00 Echo Gutiérrez COMPREHENSIVE METABOLIC 2021-03-24 05:03:00 Echo Gutiérrez PANEL ESTIMATED GFR 2021-03-24 05:03:00 Echo Gutiérrez POC GLUCOSE 2021-03-23 19:00:00 Echo Gutiérrez POC GLUCOSE 2021-03-23 16:16:00 Echo Gutiérrez POC GLUCOSE 2021-03-23 11:57:00 Echo Gutiérrez POC GLUCOSE 2021-03-23 07:05:00 Echo Gutiérrez COMPREHENSIVE METABOLIC 2021-03-23 05:14:00 Echo Gutiérrez [facility] PANEL HC COMPLETE BLD COUNT 2021-03-23 05:14:00 Echo Gutiérrez W/AUTO DIFF ESTIMATED GFR 2021-03-23 05:14:00 Echo Gutiérrez POC GLUCOSE 2021-03-22 19:15:00 Echo Gutiérrez ECG 12-LEAD 2021-03-22 16:55:38 Ebenezer Garcia Meth odist POC GLUCOSE 2021-03-22 15:49:00 Echo Gutiérrez POC GLUCOSE 2021-03-22 11:39:00 Echo Gutiérrez XR LUMBAR SPINE 2 OR 3 VW 2021-03-22 10:05:54 Echo Gutiérrez POC GLUCOSE 2021-03-22 07:19:00 Echo Gutiérrez DIGOXIN LEVEL 2021-03-22 04:50:00 Tone Fierro Meth odist COMPREHENSIVE METABOLIC 2021-03-22 04:50:00 Echo Gutiérrez PANEL HC COMPLETE BLD COUNT 2021-03-22 04:50:00 Echo Gutiérrez W/AUTO DIFF ESTIMATED GFR 2021-03-22 04:50:00 Echo Gutiérrez XR CERVICAL SPINE 1 VW 2021-03-21 22:15:25 Ishaan Bellamy [facility] XR LUMBAR SPINE 1 VW 2021-03-21 22:15:05 Ishaan Bellamyist XR THORACIC SPINE 1 VW 2021-03-21 22:14:20 [address] [facility] CT HEAD WO CONTRAST 2021-03-21 21:57:35 Ishaan Bellamy POC GLUCOSE 2021-03-21 21:23:00 Echo Gutiérrez POC GLUCOSE 2021-03-21 16:24:00 Echo Gutiérrezist POC GLUCOSE 2021-03-21 11:12:00 Echo Gutiérrez POC GLUCOSE 2021-03-21 07:18:00 Echo Gutiérrez COMPREHENSIVE METABOLIC 2021-03-21 04:40:00 Echo Gutiérrez PANEL HC COMPLETE BLD COUNT 2021-03-21 04:40:00 Echo Gutiérrez W/AUTO DIFF MAGNESIUM LEVEL 2021-03-21 04:40:00 Echo Gutiérrez OSMOLALITY, SERUM 2021-03-21 04:40:00 Tosha Hollis [facility]odist ESTIMATED GFR 2021-03-21 04:40:00 Echo Gutiérrez POC GLUCOSE 2021-03-20 19:32:00 AhTone daley Meth odist SODIUM LEVEL 2021-03-20 16:00:00 Tosha Hollis Meth odist POC GLUCOSE 2021-03-20 15:50:00 Tone Fierro Meth odist URINE CULTURE 2021-03-20 12:47:00 Tone Fierro Meth odist SODIUM LEVEL, URINE, 2021-03-20 12:47:00 Tosha Hollis RANDOM OSMOLALITY, URINE 2021-03-20 12:47:00 Tosha Hollis [facility] thodist URINALYSIS SCREEN AND 2021-03-20 12:47:00 Tone Fierroto n [facility] MICROSCOPY, WITH REFLEX TO CULTURE POC GLUCOSE 2021-03-20 11:25:00 Tone Fierro Meth odist POC GLUCOSE 2021-03-20 07:27:00 AhTone daley Meth odist COMPREHENSIVE METABOLIC 2021-03-20 04:56:00 Echo Gutiérrez PANEL HC COMPLETE BLD COUNT 2021-03-20 04:56:00 Echo Gutiérrez W/AUTO DIFF MAGNESIUM LEVEL 2021-03-20 04:56:00 Echo Gutiérrez DIGOXIN LEVEL 2021-03-20 04:56:00 Echo Gutiérrez ESTIMATED GFR 2021-03-20 04:56:00 BrockEcho mckeon POC GLUCOSE 2021-03-19 21:06:00 Echo Gutiérrez POC GLUCOSE 2021-03-19 15:22:00 Echo Gutiérrez TTE COMPLETE, WO CONTRAST, 2021-03-19 12:21:13 BrockEcho mckeon W DOPPLER ([id number]) POC GLUCOSE 2021-03-19 11:09:00 BrockEcho POC GLUCOSE 2021-03-19 07:11:00 BrockEcho COMPREHENSIVE METABOLIC 2021-03-19 04:14:00 Echo Gutiérrez PANEL HC COMPLETE BLD COUNT 2021-03-19 04:14:00 BrockEcho mckeon W/AUTO DIFF MAGNESIUM LEVEL 2021-03-19 04:14:00 BrockEcho DIGOXIN LEVEL 2021-03-19 04:14:00 Echo Gutiérrez ESTIMATED GFR 2021-03-19 04:14:[address] CHEST W CONTRAST 2021-03-18 21:20:05 Echo Gutiérrez ABDOMEN W CONTRAST PELVIS W CONTRAST CT CERVICAL SPINE WO 2021-03-18 21:17:27 Echo Gutiérrez [facility] CONTRAST POC GLUCOSE 2021-03-18 19:08:00 Echo Gutiérrez TROPONIN 2021-03-18 17:05:00 Echo Gutiérrezist POC GLUCOSE 2021-03-18 16:03:00 BrockEcho mckeon POTASSIUM LEVEL 2021-03-18 14:06:00 Echo Gutiérrez POC GLUCOSE 2021-03-18 11:07:00 BrockEcho mckeon POC GLUCOSE 2021-03-18 07:11:00 Ishaan Bellamy Meth odist US CAROTID DUPLEX 2021-03-18 06:30:00 Ishaan Bellamy Me thodist BILATERAL LACTIC ACID LEVEL 2021-03-18 04:27:00 Ishaan Bellamy Me thodist HEMOGLOBIN A1C 2021-03-18 03:40:00 Bellamy, Ishaanrafael Franks Cullen odist TROPONIN 2021-03-18 03:40:00 Ishaan Bellamy [facility] Cullen odist HC COMPLETE BLD COUNT 2021-03-18 03:40:00 Ishaan Bellamy n [facility] W/AUTO DIFF PROTHROMBIN TIME WITH INR 2021-03-18 03:40:00 Ishaan Bellamy [place] [facility] COMPREHENSIVE METABOLIC 2021-03-18 03:40:00 Ishaan Bellamy [facility] PANEL LIPID PANEL 2021-03-18 03:40:00 Ishaan Bellamy [place] odist T4, FREE 2021-03-18 03:40:00 Bellamy, Ishaanrafael Franks [place] odist THYROID STIMULATING 2021-03-18 03:40:00 Ishaan Franks [facility] HORMONE ESTIMATED GFR 2021-03-18 03:40:00 Bellamy, Ishaanrafael Franks [facility] odist MAGNESIUM LEVEL 2021-03-18 03:40:00 Bellamy, Ishaanrafael Franks [facility] odist BLOOD CULTURE, AEROBIC 2021-03-17 23:10:00 Ishaan Bellamy on [facility] TROPONIN 2021-03-17 23:09:00 Ishaan Bellamy [facility] Cullen odist THYROID STIMULATING 2021-03-17 23:09:00 Bellamy, Ishaan Serrano HORMONE POC GLUCOSE 2021-03-17 21:15:00 Virgenrafael Franks [facility] odist TROPONIN 2021-03-17 21:04:00 Bellamy, Ishaan Franks Meth odist LACTIC ACID LEVEL 2021-03-17 21:04:00 Bellamy, Ishaanrafael Franks Me thodist COMPREHENSIVE METABOLIC 2021-03-17 21:04:00 Ishaan Bellamy [facility] PANEL ESTIMATED GFR 2021-03-17 21:04:00 BellamyVirgenrafael Franks Meth odist TROPONIN 2021-03-17 19:15:00 Ishaan Franks [facility] odist COVID-19 QUALITATIVE PCR 2021-03-17 19:07:00 Narinder Parker [facility] XR CHEST 1 VW PORTABLE 2021-03-17 17:20:36 Narinder Parker on [facility] ECG ED PRELIMINARY 2021-03-17 16:50:10 Narinder Parker ethodist INTERPRETATION CT STROKE BRAIN WO 2021-03-17 16:25:05 Narinder Parker ethodist CONTRAST HC COMPLETE BLD COUNT 2021-03-17 16:04:00 Narinder Parker [facility] W/AUTO DIFF COMPREHENSIVE METABOLIC 2021-03-17 16:04:00 Narinder Parker [facility] PANEL TROPONIN 2021-03-17 16:04:00 Ishaan Bellamy Meth odist B NATRIURETIC PEPTIDE 2021-03-17 16:04:00 Narinder Parker LACTIC ACID LEVEL 2021-03-17 16:04:00 Narinder Parker Me thodist ESTIMATED GFR 2021-03-17 16:04:00 Narinder Parker Meth odist PARTIAL THROMBOPLASTIN 2021-03-17 16:02:00 Narinder Parker on [facility] TIME (PTT) PROTHROMBIN TIME WITH INR 2021-03-17 16:02:00 Narinder Parker [place] [facility] ECG 12-LEAD 2021-03-17 15:44:38 Ishaan Bellamy Meth odist POC GLUCOSE 2021-01-27 11:10:00 Magdalena Huitron POC GLUCOSE 2021-01-27 07:51:00 Magdalena Huitron CBC HEMOGRAM 2021-01-27 04:00:00 Genoveva Baxter BASIC METABOLIC PANEL 2021-01-27 04:00:00 Genoveva Baxter LIPID PANEL 2021-01-27 04:00:00 Magdalena Huitron THYROID STIMULATING 2021-01-27 04:00:00 Magdalena Huitron [facility] HORMONE ESTIMATED GFR 2021-01-27 04:00:00 Genoveva Baxter POC GLUCOSE 2021-01-26 21:12:00 Genoveva Baxterodun [facility] POC GLUCOSE 2021-01-26 17:02:00 Awe, Genovevabryan [facility] [facility] POC GLUCOSE 2021-01-26 12:14:00 Awe, Genovevabryan Franks [facility] POC GLUCOSE 2021-01-26 08:08:00 Awe, Genoveva Franks [facility] BASIC METABOLIC PANEL 2021-01-26 03:52:00 Tyrone Chen [facility] CBC HEMOGRAM 2021-01-26 03:52:00 Tyrone Chen Meth odist MAGNESIUM LEVEL 2021-01-26 03:52:00 Tyrone Chen Meth odist ESTIMATED GFR 2021-01-26 03:52:00 Tyrone Chen Meth odist POC GLUCOSE 2021-01-26 00:34:00 Awe, Genoveva Faisallizzeth Franks [facility] POC GLUCOSE 2021-01-25 20:29:00 Awe, Genoveva Simmsodun Franks [facility] POC GLUCOSE 2021-01-25 16:47:00 Awe, Genovevabryan Franks [facility] POC GLUCOSE 2021-01-25 11:41:00 Awe, Genoveva Franks [facility] POC GLUCOSE 2021-01-25 07:48:00 Awsean, Genoveva Franks [facility] BASIC METABOLIC PANEL 2021-01-25 04:32:00 Jackie Serrano [facility] [place] MAGNESIUM LEVEL 2021-01-25 04:32:00 Jackie Serrano Meth odist [place] CBC HEMOGRAM 2021-01-25 04:32:00 Tyrone Chen Meth odist ESTIMATED GFR 2021-01-25 04:32:00 Tyrone Chen Meth odist BASIC METABOLIC PANEL 2021-01-24 23:00:00 Jackie Serrano [facility] [place] MAGNESIUM LEVEL 2021-01-24 23:00:00 Jackie Serrano Meth odist [place] ESTIMATED GFR 2021-01-24 23:00:00 Jackie Serrano Meth odist [place] POC GLUCOSE 2021-01-24 20:59:00 AwPeraltaGenoveva Faisallizzeth Franks [facility] POC GLUCOSE 2021-01-24 16:06:00 Awe, Genoveva Simmslizzeth Farnks [facility] POC GLUCOSE 2021-01-24 13:07:00 Awe, Genoveva Faisallizzeth Franks [facility] BASIC METABOLIC PANEL 2021-01-24 11:38:00 Jackie Serrano [place] MAGNESIUM LEVEL 2021-01-24 11:38:00 Jackie Serrano odailin [place] VENOUS BLOOD GAS 2021-01-24 11:38:00 Duran Hollisita Golden Amaya hodailin ESTIMATED GFR 2021-01-24 11:38:00 Jackie Serrano odist [place] POC GLUCOSE 2021-01-24 08:36:00 Awe, Genoveva Faisallizzeth Franks [facility] POC GLUCOSE 2021-01-24 05:04:00 Awe, Genovevagabriela Franks [facility] MAGNESIUM LEVEL 2021-01-24 03:52:00 Jackie Serrano odailin [place] BASIC METABOLIC PANEL 2021-01-24 03:52:00 Tyrone Chen [facility] CBC HEMOGRAM 2021-01-24 03:52:00 Tyrone Chen Meth odist ESTIMATED GFR 2021-01-24 03:52:00 Tyrone Chen odist POC GLUCOSE 2021-01-24 01:13:00 Awe, Genovevagabriela Franks [facility] POC GLUCOSE 2021-01-23 22:35:00 Awe, Genovevarylie Franks [facility] POC GLUCOSE 2021-01-23 20:37:00 Awe, Genoveva Faisallizzeth Franks [facility] BASIC METABOLIC PANEL 2021-01-23 20:18:00 Jackie Serrano [facility] [place] MAGNESIUM LEVEL 2021-01-23 20:18:00 Jackie Serrano odist [place] ESTIMATED GFR 2021-01-23 20:18:00 Polo Gutierrez Meth odist POC GLUCOSE 2021-01-23 17:29:00 Awe, Genoveva Franks [facility] BASIC METABOLIC PANEL 2021-01-23 12:08:00 Jackie Serrano [facility] [place] MAGNESIUM LEVEL 2021-01-23 12:08:00 Jackie Serrano odist [place] ESTIMATED GFR 2021-01-23 12:08:00 Polo Gutierrez Meth odist POC GLUCOSE 2021-01-23 11:57:00 Polo Gutierrez Meth odist POC GLUCOSE 2021-01-23 07:23:00 Polo Gutierrez Meth odist COMPREHENSIVE METABOLIC 2021-01-23 03:34:00 Luis Eduardo Marcial [facility] PANEL [facility] HC COMPLETE BLD COUNT 2021-01-23 03:34:00 Luis Eduardo Marcial [facility] W/AUTO DIFF [facility] MAGNESIUM LEVEL 2021-01-23 03:34:00 Jackie Serrano [place] PHOSPHORUS LEVEL 2021-01-23 03:34:00 Luis Eduardo Marcial hodailin [place] IONIZED CALCIUM 2021-01-23 03:34:00 Luis Eduardo Marcial odist [place] PROTHROMBIN TIME WITH INR 2021-01-23 03:34:00 Jackie Serrano [place] ESTIMATED GFR 2021-01-23 03:34:00 Luis Eduardo Marcial [place] XR CHEST 1 VW PORTABLE 2021-01-23 03:03:13 Luis Eduardo Marcial on [facility] [place] BASIC METABOLIC PANEL 2021-01-23 00:13:00 Polo Gutierrez [facility] MAGNESIUM LEVEL 2021-01-23 00:13:00 Polo Gutierrez Meth odist ESTIMATED GFR 2021-01-23 00:13:00 Polo Gutierrez odist POC GLUCOSE 2021-01-22 21:06:00 Polo Gutierrez Meth odist BASIC METABOLIC PANEL 2021-01-22 19:13:00 Polo Gutierrez [facility] ESTIMATED GFR 2021-01-22 19:13:00 Polo Gutierrez Meth odist BASIC METABOLIC PANEL 2021-01-22 17:26:00 Polo Gutierrez [facility] MAGNESIUM LEVEL 2021-01-22 17:26:00 Polo Gutierrez Meth odist ESTIMATED GFR 2021-01-22 17:26:00 Polo Gutierrez odist POC GLUCOSE 2021-01-22 16:18:00 Polo Gutierrez Meth odist POC GLUCOSE 2021-01-22 11:57:00 Polo Gutierrez Meth odist BASIC METABOLIC PANEL 2021-01-22 10:37:00 Polo Gutierrez [facility] MAGNESIUM LEVEL 2021-01-22 10:37:00 Polo Gutierrez Meth odist ESTIMATED GFR 2021-01-22 10:37:00 Polo Gutierrez Meth odist POC GLUCOSE 2021-01-22 07:32:00 Polo Gutierrez Meth odist XR CHEST 1 VW PORTABLE 2021-01-22 03:29:49 Luis Eduardo Marcial on [facility] [place] COMPREHENSIVE METABOLIC 2021-01-22 01:20:00 Luis Eduardo Marcial [facility] PANEL [place] HC COMPLETE BLD COUNT 2021-01-22 01:20:00 Luis Eduardo Marcial [facility] W/AUTO DIFF [place] MAGNESIUM LEVEL 2021-01-22 01:20:00 Jackie Serrano odist [place] PHOSPHORUS LEVEL 2021-01-22 01:20:00 Luis Eduardo Marcial hodailin [place] IONIZED CALCIUM 2021-01-22 01:20:00 Luis Eduardo Marcial odist [place] PROTHROMBIN TIME WITH INR 2021-01-22 01:20:00 Jackie Serrano [facility] [place] ESTIMATED GFR 2021-01-22 01:20:00 Luis Eduardo Marcial odist [place] POC GLUCOSE 2021-01-22 00:37:00 Polo Gutierrez Meth odist POC GLUCOSE 2021-01-21 20:46:00 Polo Gutierrez Meth odist BASIC METABOLIC PANEL 2021-01-21 17:09:00 Polo Gutierrez [facility] MAGNESIUM LEVEL 2021-01-21 17:09:00 Polo Gutierrez Meth odist ESTIMATED GFR 2021-01-21 17:09:00 Polo Gutierrez Meth odist POC GLUCOSE 2021-01-21 17:01:00 Polo Gutierrez Meth odist POC GLUCOSE 2021-01-21 15:49:00 Polo Gutierrez Meth odist POC GLUCOSE 2021-01-21 14:57:00 Polo Gutierrez Meth odist POC GLUCOSE 2021-01-21 13:35:00 Polo Gutierrez Meth odist POC GLUCOSE 2021-01-21 12:01:00 Polo Gutierrez Meth odist POC GLUCOSE 2021-01-21 10:58:00 Polo Gutierrez Meth odist BASIC METABOLIC PANEL 2021-01-21 10:15:00 Polo Gutierrez [facility] MAGNESIUM LEVEL 2021-01-21 10:15:00 Polo Gutierrez odist ESTIMATED GFR 2021-01-21 10:15:00 Polo Gutierrez odist POC GLUCOSE 2021-01-21 10:05:00 Polo Gutierrez Meth odist BASIC METABOLIC PANEL 2021-01-21 09:06:00 Polo Gutierrez [facility] MAGNESIUM LEVEL 2021-01-21 09:06:00 Polo Gutierrez Meth odist ESTIMATED GFR 2021-01-21 09:06:00 Polo Gutierrez Meth odist POC GLUCOSE 2021-01-21 08:59:00 Polo Gutierrez Meth odist POC GLUCOSE 2021-01-21 07:20:00 Polo Gutierrez XR CHEST 1 VW PORTABLE 2021-01-21 05:09:09 Luis Eduardo Marcial on [facility] [place] DIGOXIN LEVEL 2021-01-21 01:00:00 Polo Gutierrez Meth odist COMPREHENSIVE METABOLIC 2021-01-21 01:00:00 Luis Eduardo Marcial [facility] PANEL [place] HC COMPLETE BLD COUNT 2021-01-21 01:00:00 Luis Eduardo Marcial [facility] W/AUTO DIFF [place] PHOSPHORUS LEVEL 2021-01-21 01:00:00 Luis Eduardo Marcial Met hodist [place] IONIZED CALCIUM 2021-01-21 01:00:00 Luis Eduardo Marcial Meth odist [place] PARTIAL THROMBOPLASTIN 2021-01-21 01:00:00 Luis Eduardo Marcial on [facility] TIME (PTT) Rand ESTIMATED GFR 2021-01-21 01:00:00 Aniket Luis Eduardonadine Franks Meth odist [place] MAGNESIUM LEVEL 2021-01-21 01:00:00 Luis Eduardo Marcial Meth odist [place] POC GLUCOSE 2021-01-20 20:54:00 Polo Gutierrez Meth odist POC GLUCOSE 2021-01-20 17:33:00 Polo Gutierrez Meth odist BASIC METABOLIC PANEL 2021-01-20 17:29:00 John Rishi Rao on [facility] [place] MAGNESIUM LEVEL 2021-01-20 17:29:00 Rishi Lopez Met hodist [place] ESTIMATED GFR 2021-01-20 17:29:00 Tamiko Lopezeliza Franks Met hodist [place] POC GLUCOSE 2021-01-20 15:38:00 Polo Gutierrez Meth odist BASIC METABOLIC PANEL 2021-01-20 12:37:00 John Rishi Rao on [facility] [place] MAGNESIUM LEVEL 2021-01-20 12:37:00 AllyssaRishi white Franks Met hodist [place] ESTIMATED GFR 2021-01-20 12:37:00 Rishi Lopez Met hodist [place] POC GLUCOSE 2021-01-20 11:24:00 Polo Gutierrez Meth odist POC GLUCOSE 2021-01-20 08:10:00 Polo Gutierrez Meth odist HC COMPLETE BLD COUNT 2021-01-20 04:55:00 Allyssachristopher Rishi Rao on [facility] W/AUTO DIFF [place] COMPREHENSIVE METABOLIC 2021-01-20 04:55:00 AllyssaRishi white Óscar ston [facility] PANEL [place] IONIZED CALCIUM 2021-01-20 04:55:00 Rishi Lopez Met hodist [place] MAGNESIUM LEVEL 2021-01-20 04:55:00 Rishi Lopez Franks Met hodist [place] PHOSPHORUS LEVEL 2021-01-20 04:55:00 Rishi Lopez Me thodist [place] ESTIMATED GFR 2021-01-20 04:55:00 Rishi Lopez Franks Met hodist [place] POC GLUCOSE 2021-01-20 04:07:00 Polo Gutierrez Meth odist BASIC METABOLIC PANEL 2021-01-19 23:48:00 Rishi Lopez Maira on [facility] [place] MAGNESIUM LEVEL 2021-01-19 23:48:00 Rishi Lopez Met hodist [place] ESTIMATED GFR 2021-01-19 23:48:00 Rishi Lopez Met hodist [place] POC GLUCOSE 2021-01-19 23:44:00 Polo Gutierrez Meth odist POC GLUCOSE 2021-01-19 19:56:00 Polo Gutierrez Meth odist BASIC METABOLIC PANEL 2021-01-19 17:05:00 Sofi Cheatham [facility] IONIZED CALCIUM 2021-01-19 17:05:00 Sofi Cheatham [facility] MAGNESIUM LEVEL 2021-01-19 17:05:00 Sofi Cheatham [facility] ESTIMATED GFR 2021-01-19 17:05:00 Sofi Cheatham [facility] POC GLUCOSE 2021-01-19 16:27:00 Silvia Tellez [facility] POC GLUCOSE 2021-01-19 12:21:00 Silvia Tellez [facility] POC GLUCOSE 2021-01-19 07:59:00 Silvia Tellez [facility] POC GLUCOSE 2021-01-19 04:43:00 Silvia Tellez [facility] HC COMPLETE BLD COUNT 2021-01-19 03:17:00 AllyssaRishi white Maira on [facility] W/AUTO DIFF [place] COMPREHENSIVE METABOLIC 2021-01-19 03:17:00 Rishi Lopez Óscar ston [facility] PANEL [place] IONIZED CALCIUM 2021-01-19 03:17:00 Rishi Lopez Met hodist [place] MAGNESIUM LEVEL 2021-01-19 03:17:00 Rishi Lopez Met hodist [place] PHOSPHORUS LEVEL 2021-01-19 03:17:00 Rishi Lopez Me thodist [place] ESTIMATED GFR 2021-01-19 03:17:00 Rishi Lopez Met hodist [place] POC GLUCOSE 2021-01-19 01:50:00 El-Silvia Metz Franks [facility] POC GLUCOSE 2021-01-18 21:07:00 El-Qaddoumi, Silvia Franks [facility] POC GLUCOSE 2021-01-18 17:56:00 El-Qaddoumi, Silvia Franks [facility] POC GLUCOSE 2021-01-18 12:44:00 El-QaddouSilvia lowry [facility] POC GLUCOSE 2021-01-18 09:30:00 El-QacynthiaouSilvia lowry [facility] BASIC METABOLIC PANEL 2021-01-18 03:40:00 Tyrone Chen [facility] CBC HEMOGRAM 2021-01-18 03:40:00 Tyroen Chen Meth odist IONIZED CALCIUM 2021-01-18 03:40:00 Tyrone Chen Meth odist MAGNESIUM LEVEL 2021-01-18 03:40:00 Tyrone Chen Meth odist ESTIMATED GFR 2021-01-18 03:40:00 Tyrone Chen Meth odist POC GLUCOSE 2021-01-17 19:51:00 El-Qaddoualen, Silvia Franks [facility] POC GLUCOSE 2021-01-17 15:23:00 El-Qacynthiaoumi, Silvia Franks [facility] POC GLUCOSE 2021-01-17 11:45:00 El-QacynthiaouSilvia lowry [facility] POC GLUCOSE 2021-01-17 07:26:00 El-QaddouSilvia lowry [facility] POC GLUCOSE 2021-01-17 05:17:00 El-QaddouSilvia lowry [facility] POC GLUCOSE 2021-01-17 04:20:00 El-QaddoumiSilvia [facility] HC COMPLETE BLD COUNT 2021-01-17 02:46:00 Trena Guerrero W/AUTO DIFF IONIZED CALCIUM 2021-01-17 02:46:00 Trena Guerrero [facility] PHOSPHORUS LEVEL 2021-01-17 02:46:00 Trena Guerrero on [facility] PROTHROMBIN TIME WITH INR 2021-01-17 02:46:00 Trena Guerrero COMPREHENSIVE METABOLIC 2021-01-17 02:46:00 Yolanda, Trena Gomez [facility] PANEL ESTIMATED GFR 2021-01-17 02:46:00 Yolanda, Trena Figueroato n [facility] POC GLUCOSE 2021-01-17 01:32:00 -ColleenSilvia frank [facility] BASIC METABOLIC PANEL 2021-01-16 21:19:00 Yolanda, Trena Franks [facility] MAGNESIUM LEVEL 2021-01-16 21:19:00 Yolanda, Trena Figueroato n [facility] IONIZED CALCIUM 2021-01-16 21:19:00 Yolanda, Trena [place] [facility] ESTIMATED GFR 2021-01-16 21:19:00 Yolanda, Trena Figueroato n [facility] POC GLUCOSE 2021-01-16 21:12:00 [facility]OL[facility] PAN[facility] 2021-01-16 16:16:00 YolandaTrena [facility] MAGNESIUM LEVEL 2021-01-16 16:16:00 Yolanda, Trena Young [place] [facility] IONIZED CALCIUM 2021-01-16 16:16:00 Yolanda, Trena Figueroato n [facility] ESTIMATED GFR 2021-01-16 16:16:00 Yolanda, Trena Young [place] [facility] POC GLUCOSE 2021-01-16 16:13:00 [facility] 2021-01-16 13:31:00 [facility] BASIC METABOLIC PANEL 2021-01-16 10:59:00 Yolanda, Trena Franks [facility] MAGNESIUM LEVEL 2021-01-16 10:59:00 Yolanda, Trena Figueroato n [facility] IONIZED CALCIUM 2021-01-16 10:59:00 Yolanda, Trenacarrillo Lopeznacamron [place] [facility] TROPONIN 2021-01-16 10:59:00 Yolanda, Trena Maghinay [place] [facility] ESTIMATED GFR 2021-01-16 10:59:00 Yolanda, Trena Serrano POC GLUCOSE 2021-01-16 09:15:00 CamillesalmaalenSilvia POC GLUCOSE 2021-01-16 08:11:00 DarrenColleensalmaalenSilvia ECG 12-LEAD 2021-01-16 07:32:45 Yolanda, Trena Serrano URINE CULTURE 2021-01-16 07:05:00 Trena Guerrero URINALYSIS SCREEN AND 2021-01-16 07:05:00 Yolanda, Trena Serrano MICROSCOPY, WITH REFLEX TO CULTURE XR CHEST 1 VW PORTABLE 2021-01-16 06:58:22 Yolanda, Trena Serrano ND INSERT NON-TUNNEL CV 2021-01-16 06:41:00 Trena Guerrero CATH ND INSERT 2021-01-16 06:25:13 Gerardo Garcias CATH,ART,PERCUT,SHORTTERM B NATRIURETIC PEPTIDE 2021-01-16 06:22:00 Yolanda, Trena Serrano LACTIC ACID LEVEL, SEPSIS 2021-01-16 06:22:00 Apolinar Valentin - NOW AND REPEAT 2X EVERY 3 HOURS TROPONIN 2021-01-16 06:22:00 Yolanda, Trena Serrano HC COMPLETE BLD COUNT 2021-01-16 06:22:00 Yolanda, Trena Serrano W/AUTO DIFF IONIZED CALCIUM 2021-01-16 06:22:00 YolandaTrena PHOSPHORUS LEVEL 2021-01-16 06:22:00 Trena Guerrero PROTHROMBIN TIME WITH INR 2021-01-16 06:22:00 Yolanda, Trena Serrano COMPREHENSIVE METABOLIC 2021-01-16 06:22:00 Yolanda, Trena Serrano PANEL ESTIMATED GFR 2021-01-16 06:22:00 Trena Guerreroto michael Serrano VENOUS BLOOD GAS 2021-01-16 05:28:00 YolandaTrena Hector Chanist TROPONIN 2021-01-16 03:13:00 Apolinar Valentin LACTIC ACID LEVEL, SEPSIS 2021-01-16 03:13:00 Apolinar Valentin - NOW AND REPEAT 2X EVERY 3 HOURS POC GLUCOSE 2021-01-16 01:45:00 Apolinar Valentin POC GLUCOSE 2021-01-16 01:17:00 Apolinar Valentin B NATRIURETIC PEPTIDE 2021-01-15 23:55:00 Apolinar Valentin BASIC METABOLIC PANEL 2021-01-15 23:55:00 Apolinar Valentin MAGNESIUM LEVEL 2021-01-15 23:55:00 Apolinar Valentin PHOSPHORUS LEVEL 2021-01-15 23:55:00 Apolinar Valentin HEPATIC FUNCTION PANEL 2021-01-15 23:55:00 Apolinar Valentin TROPONIN 2021-01-15 23:55:00 Apolinar Valentin ESTIMATED GFR 2021-01-15 23:55:00 Apolinar Valentin XR CHEST 1 VW PORTABLE 2021-01-15 23:26:05 Apolinar Valentin BLOOD CULTURE, AEROBIC & 2021-01-15 22:50:00 Apolinar Valentin ANAEROBIC BLOOD CULTURE, AEROBIC & 2021-01-15 22:42:00 Apolinar Valentin ANAEROBIC URINE CULTURE 2021-01-15 22:37:00 Apolinar Valentin URINALYSIS SCREEN AND 2021-01-15 22:37:00 Apolinar Valentin MICROSCOPY, WITH REFLEX TO CULTURE ND CRITICAL CARE, E/M 2021-01-15 22:36:00 Apolinar Valentin 30-74 MINUTES ECG ED PRELIMINARY 2021-01-15 22:36:00 Apolinar Valentin on [facility] INTERPRETATION LACTIC ACID LEVEL, SEPSIS 2021-01-15 22:20:00 Apolinar Valentin - NOW AND REPEAT 2X EVERY 3 HOURS PROTHROMBIN TIME WITH INR 2021-01-15 22:20:00 Apolinar Valentin PARTIAL THROMBOPLASTIN 2021-01-15 22:20:00 Apolinar Valentin TIME (PTT) HC COMPLETE BLD COUNT 2021-01-15 22:20:00 Apolinar Valentin W/AUTO DIFF ECG 12-LEAD 2021-01-15 22:16:13 Apolinar Valentin POC GLUCOSE 2021-01-14 12:34:00 Alex Whitman ethodist [place] POC GLUCOSE 2021-01-14 07:22:00 Alex Whitman ethodist [place] BASIC METABOLIC PANEL 2021-01-14 06:20:00 Alex Whitman [facility] [place] HC COMPLETE BLD COUNT 2021-01-14 06:20:00 Alex Whitman [facility] W/AUTO DIFF [place] ESTIMATED GFR 2021-01-14 06:20:00 Alex Whitman ethodist [place] HC COMPLETE BLD COUNT 2021-01-13 22:04:00 Sarita Davis [facility] W/AUTO DIFF COMPREHENSIVE METABOLIC 2021-01-13 22:04:00 Sarita Davis [facility] PANEL LACTIC ACID LEVEL, SEPSIS 2021-01-13 22:04:00 Misael Davis - NOW AND REPEAT 2X EVERY 3 HOURS ESTIMATED GFR 2021-01-13 22:04:00 Sarita Davis POC GLUCOSE 2021-01-13 20:44:00 Alex Whitman ethodist [place] POC GLUCOSE 2021-01-13 16:32:00 Alex Whitman ethodist [place] POC GLUCOSE 2021-01-13 11:48:00 Alex Whitman ethodist [place] POC GLUCOSE 2021-01-13 07:57:00 Rachel Alexander Meth odist COMPREHENSIVE METABOLIC 2021-01-13 07:48:00 Benjamin, Itrylie kay [facility] PANEL ESTIMATED GFR 2021-01-13 07:48:00 Benjamin, Iti Golden Meth odist HC COMPLETE BLD COUNT 2021-01-13 05:08:00 Benjamin, Itrylie rodriguez [facility] W/AUTO DIFF PROTHROMBIN TIME WITH INR 2021-01-13 05:08:00 Benjamin, Iti Mark arrington [facility] POC GLUCOSE 2021-01-12 20:54:00 Benjamin, Iti Golden Meth odist POC GLUCOSE 2021-01-12 16:51:00 Benjamin, Iti Franks Meth odist POC GLUCOSE 2021-01-12 11:14:00 Benjamin, Iti Franks Meth odist POC GLUCOSE 2021-01-12 07:20:00 Benjamin, Iti Golden Meth odist COMPREHENSIVE METABOLIC 2021-01-12 04:32:00 Benjamin, Rachel kay [facility] PANEL ESTIMATED GFR 2021-01-12 04:32:00 Benjamin, Itrylie Franks Meth odist POC GLUCOSE 2021-01-11 20:54:00 Benjamin, Itrylie Franks Meth odist POC GLUCOSE 2021-01-11 17:01:00 Benjamin, Itrylie Franks Meth odist POC GLUCOSE 2021-01-11 11:08:00 Benjamin, Itrylie Franks Meth odist POC GLUCOSE 2021-01-11 08:18:00 Benjamin, Itrylie Franks Meth odist POC GLUCOSE 2021-01-11 05:43:00 Benjamin, Iti Franks Meth odist POC GLUCOSE 2021-01-11 05:41:00 Benjamin, Iti Franks Meth odist POC GLUCOSE 2021-01-11 05:12:00 Benjamin, Iti Franks Meth odist COMPREHENSIVE METABOLIC 2021-01-11 04:10:00 Benjmain, Rachel kay [facility] PANEL HC COMPLETE BLD COUNT 2021-01-11 04:10:00 Benjamin, Itrylie rodriguez [facility] W/AUTO DIFF MAGNESIUM LEVEL 2021-01-11 04:10:00 Benjamin, Itrylie Franks Meth odist DIGOXIN LEVEL 2021-01-11 04:10:00 Benjamin, Iti Golden Meth odist HEMOGLOBIN A1C 2021-01-11 04:10:00 Benjamin, Iti Golden Meth odist ESTIMATED GFR 2021-01-11 04:10:00 Benjamin, Iti Golden Meth odist POC GLUCOSE 2021-01-10 21:00:00 Benjamin, Iti Golden Meth odist POC GLUCOSE 2021-01-10 18:00:00 Benjamin, Iti Golden Meth odist POC GLUCOSE 2021-01-10 12:39:00 Benjamin, Iti Golden Meth odist POC GLUCOSE 2021-01-10 08:19:00 Benjamin, Iti Golden Meth odist POC GLUCOSE 2021-01-10 07:46:00 Benjamin, Iti Golden Meth odist BASIC METABOLIC PANEL 2021-01-10 06:04:00 Benjamin, Iti Donny n [facility] HC COMPLETE BLD COUNT 2021-01-10 06:04:00 Benjamin, Iti Donny rodriguez [facility] W/AUTO DIFF ESTIMATED GFR 2021-01-10 06:04:00 Benjamin, Iti Golden Meth odist POC GLUCOSE 2021-01-09 20:46:00 Benjamin, Iti Golden Meth odist POC GLUCOSE 2021-01-09 16:55:00 Benjamin, Iti Golden Meth odist URINE CULTURE 2021-01-09 12:11:00 Benjamin, Iti Golden Meth odist URINALYSIS SCREEN AND 2021-01-09 12:11:00 Benjamin, Iti Donny rodriguez [facility] MICROSCOPY, WITH REFLEX TO CULTURE POC GLUCOSE 2021-01-09 12:09:00 Benjamin, Iti Golden Berman odist TTE COMPLETE, W CONTRAST, 2021-01-09 11:29:49 Padilla Chacon W DOPPLER ([id number]) Juanito HC COMPLETE BLD COUNT 2021-01-09 06:02:00 Padilla Chacon [facility] W/AUTO DIFF Juanito COMPREHENSIVE METABOLIC 2021-01-09 06:02:00 Padilla Chacon [facility] PANEL Juanito MAGNESIUM LEVEL 2021-01-09 06:02:00 Padilla Chacon Juanito TROPONIN 2021-01-09 06:02:00 Ana Cristina Padilla Golden [place] Juanito ESTIMATED GFR 2021-01-09 06:02:00 Padilla Chacon Juanito TROPONIN 2021-01-08 23:43:00 Erica Garner ethodist COVID-19 QUALITATIVE PCR 2021-01-08 22:32:00 Erica Garner XR CHEST 1 VW PORTABLE 2021-01-08 20:54:19 Erica Garner HC COMPLETE BLD COUNT 2021-01-08 20:53:00 Erica Garner W/AUTO DIFF PROTHROMBIN TIME WITH INR 2021-01-08 20:53:00 Erica Garner PARTIAL THROMBOPLASTIN 2021-01-08 20:53:00 Erica Garner TIME (PTT) COMPREHENSIVE METABOLIC 2021-01-08 20:53:00 Erica Garner PANEL CREATINE KINASE, TOTAL 2021-01-08 20:53:00 Erica Garner (CPK) TROPONIN 2021-01-08 20:53:00 Erica Garner LIPASE LEVEL 2021-01-08 20:53:00 Erica Garner B NATRIURETIC PEPTIDE 2021-01-08 20:53:00 Erica Garner ESTIMATED GFR 2021-01-08 20:53:00 Erica Garner ND CRITICAL CARE, E/M 2021-01-08 20:44:49 Erica Garner 30-74 MINUTES ECG ED PRELIMINARY 2021-01-08 20:44:49 Erica Garner [facility] INTERPRETATION ECG 12-LEAD 2021-01-08 20:32:59 Erica Garnerst POC GLUCOSE 2020-12-03 15:13:00 Dave Branch SURGICAL PATHOLOGY REQUEST 2020-12-03 13:47:00 Dave Branch ND AN ELECTIVE 2020-12-03 12:46:37 Chase Armenta Meth odist ENDOTRACHEAL AIRWAY CHOLECYSTECTOMY, 2020-12-03 12:31:00 Dave Branch [place] [facility] LAPAROSCOPIC POC GLUCOSE 2020-12-03 11:01:00 Dave Branch COVID-19 QUALITATIVE PCR 2020-11-28 12:14:00 Dave Branch HEMOGLOBIN A1C 2020-11-28 12:14:00 Dave Branch COMPREHENSIVE METABOLIC 2020-11-28 12:14:00 Dave Branch PANEL HC COMPLETE BLD COUNT 2020-11-28 12:14:00 Dave Branch W/AUTO DIFF ESTIMATED GFR 2020-11-28 12:14:00 Dave Branch ECG 12-LEAD 2020-11-28 12:12:29 Dave Branch HEMOGLOBIN A1C 2020-10-07 15:35:00 Dominic Duque MICROALBUMIN / CREATININE 2020-10-07 15:35:00 Dominic Duque am URINE RATIO CBC WITH PLATELET AND 2020-10-07 15:35:00 Dominic Duque DIFFERENTIAL COMPREHENSIVE METABOLIC 2020-10-07 15:35:00 Dominic Duque PANEL LIPID PANEL 2020-10-07 15:35:00 Dominic Duque URINALYSIS, MICRO UA 2020-10-07 15:35:00 Dominic Duque SCREEN WITH MICROSCOPY CBC WITH PLATELET AND 2020-09-16 15:20:00 Dominic Duque DIFFERENTIAL IRON LEVEL 2020-09-16 15:20:00 Dominic Duque FOLATE LEVEL 2020-09-16 15:20:00 Dominic Duque VITAMIN B12 LEVEL 2020-09-16 15:20:00 Dominic Duque on [facility] FLUZONE HIGH-DOSE QUAD PF 2020-09-16 15:00:00 Dominic Duque am (0.7ML SYRINGE) HEMOGLOBIN A1C 2020-07-03 14:21:00 Dominic Duque LIPID PANEL 2020-07-03 14:21:00 Dominic Duque Plan of Care Planned Activity Planned Date Details Comments Source Future Scheduled 2029-11-06 COLONOSCOPY [facility] 00:00:00 SCREENING [code = [facility] COLONOSCOPY SCREENING] Future Scheduled 2021-10-07 URINE MICROALBUMIN [facility] 00:00:00 [code = URINE [facility] MICROALBUMIN] Future Scheduled 2021-09-16 65+ PNEUMOCOCCAL Postponed from [facility] 00:00:00 VACCINE (1 of - 1953 [facility] PPSV23) [code = 65+ (Patient Refused) PNEUMOCOCCAL VACCINE (1 of 2 - PPSV23)] Future Scheduled 2021-09-16 SHINGLES VACCINES Postponed from [facility] 00:00:00 (#1) [code = 1997 [facility] SHINGLES VACCINES (Patient Refused) (#1)] Future Scheduled 2021-09-09 DIABETES: RETINAL [facility] 00:[facility]:00 EYE EXAM [code = [facility] DIABETES: RETINAL EYE EXAM] Future Scheduled 2021-07-03 DIABETIC FOOT EXAM [facility] 00:00:00 [code = DIABETIC [facility] FOOT EXAM] Future Scheduled 2021-06-29 INFLUENZA VACCINE [facility] 00:00:00 [code = INFLUENZA [facility] VACCINE] Future Scheduled 2002 Screening for [facility] 00:00:00 malignant neoplasm [facility] lung (procedure) [code = 843807493] Future Scheduled 1965 Hepatitis C [facility] 00:[facility]:00 screening [facility] (procedure) [code = 164741123] Future Scheduled 1963 COVID-19 VACCINE (1) [facility] 00:00:00 [code = COVID-19 [facility] VACCINE (1)] Encounters Start End Encounter Admission Attending Care Care Encounter Source Date/Time Date/Time Type Type Clinicians Facility Department ID 2021-03-28 2021-03-28 Outpatient WICKRAMASIN [facility] [id number] [place] 00:00:00 00:00:00 GHE, 487 [facility] SASRUTHA 2021-03-17 2021-03-25 Inpatient ABRANO, [facility] [id number] [place] 00:00:00 00:00:00 CHIMI 585 [facility] 2021-03-17 2021-03-17 Outpatient LINGAMFELTE [facility] [id number] [place] 00:00:00 00:00:00 R, R. 661 [facility] 2021-01-15 2021-01-27 Inpatient COLE, [facility] [id number] [place] 00:00:00 00:00:00 MAGDALENA 139 [facility] 2021-01-08 2021-01-14 Inpatient NASEERULLAH [facility] [id number] [place] 00:00:00 00:00:00 , ALEX 496 [facility] 2020-12-18 2020-12-18 Outpatient [facility] [id number] [place] 00:00:00 00:00:00 181 [facility] 2020-12-17 2020-12-17 Outpatient LINGAMFELTE [facility] [id number] [place] 00:00:00 00:00:00 R, R. 168 [facility] 2020-12-03 2020-12-03 Outpatient BRANCH, [facility] [id number] [place] 00:00:00 00:00:00 DAVE 974 [facility] 2020-11-28 2020-11-28 Outpatient BRANCH, [facility] [id number] [place] 00:00:00 00:00:00 DAVE 800 [facility] 2020-11-04 2020-11-04 Outpatient BRANCH, [facility] [id number] [place] 00:00:00 00:00:00 DAVE 453 [facility] 2020-10-07 2020-10-07 Outpatient [facility] [id number] [place] 00:00:00 00:00:00 923 [facility] 2020-09-16 2020-09-16 [facility] [facility] 327 [id number] [place] 00:00:00 00:00:00 R, R. [address] 2020-07-03 2020-07-03 Outpatient [facility] [id number] [place] 00:00:00 00:00:[address] 2020-05-07 2020-05-07 Outpatient [facility] [id number] [place] 00:00:00 00:00:[address] 2020-01-18 2020-01-18 Outpatient POPPY, [facility] [id number] [place] 00:00:00 00:00:00 BERTHA [address] 2019-09-27 2019-09-27 Outpatient MILES, [facility] 021 [id number] [place] 00:00:00 00:00:00 NEAL [address] Results Test Description Test Time Test Comments Results Result Comments Source ECG 12 lead 2021-03-24 16:23:55 Test Item Value Reference Range Interpretation Comme nts Ventricular rate (test code = 253) 87 Atrial rate (test code = 255) 51 QRSD interval (test code = 260) 154 QT interval (test code = 264) 374 QTC interval (test code = 265) 450 QRS axis 1 (test code = 268) 245 T wave axis (test code = 270) 69 EKG impression (test code = 273) Ventricular-paced rhythm-Biventric ular pacemaker detected-Abnormal ECG-In automated comparison with ECG of 17-MAR-2021 15:44,-premature ventricular complexes are no longer present-Vent. rate has decreased BY 9 BPM- Golden SerranoUrine gmytlne7661-06-37 08:56:04 Test Item Value Reference Range Interpretation Comments Urine culture (test SEE COMMENT Bacteriu el screen code = 9535912) negative. [facility] Lumbar Spine 2 Or 3 [id number] 14:51:21Hm Interface, Radiology Results - 03/22/2021 2:54 PM CDT EXAMINATION: XR LUMBAR SPINE 2 OR 3 VWCLINICAL HISTORY: s p fallCOMPARISON: Lumbar spinal CT on 01/18/2020 and crosstable lumbar spinal radiograph on 03/21/2021.IMPRESSION:Total of 3 views with AP and lateral radiographs of the lumbar spine as well as spot lateral radiographof the lumbosacral region were obtained.The study is limited by relative osteopenia and overlying bowel gas.There are 5 lumbar type vertebrae, and the last functional disc is presumed to be L5-S1.Stable severe rotatory levoscoliosis centered at L3-4 with Ferrera angle of 30 degrees. Stable grade 1 left lateral subluxation of L4 on L5.Scoliosis limits evaluation of vertebrae but no gross finding of acutefracture.The L3-4 and L4-5 discs are severely narrowed with vacuum phenomenon, adjacent chronic discogenic endplate changes and endplate osteophytes eccentric to the right. The L5-S1 disc is moderately narrowed with adjacent chronic disc endplate changes and endplate osteophytes eccentric to the left.Moderate-severe facet arthropathy is present at L3-4, L4- 5, and to lesser degree L5-S1.Surgical clips in right upper quadrant abdomen from prior cystectomy.Arthrosis of bilateral hip joints with mild-moderate joint space narrowing.[id number]XR Cervical Spine 1 [id number] 23:44:01Hm Interface, Radiology Results 03/21/2021 11:47 PM CDT EXAMINATION: XR CERVICAL SPINE 1 VWCLINICAL HISTORY: fellCOMPARISON: CT cervical spine 03/18/2021IMPRESSION:Single lateral crosstable radiograph of the cervical spine demonstrates no evidence of acute traumatic injury.Suboptimal visualization below the C6-C7 level.Preservation of the normal cervical lordosis.Moderate to severe intervertebral disc space narrowing at C5-C6 andC6-C7.Vertebral body heights appear maintained.[id number] [facility] Lumbar Spine 1 2021-03-21 23:15:54Hm Interface, Radiology Results 03/21/2021 11:19 PM CDT EXAMINATION: XR LUMBAR SPINE 1 VWCLINICAL HISTORY: fallCOMPARISON: CT abdomen and pelvis 03/18/2021IMPRESSION:Markedly limited single crosstable oblique lateral view of the lumbar spine of questionable diagnostic utility.Questionable deformity of the superior endplate of L3. Consider cross-sectional imaging.[id number] [facility] Thoracic Spine 1 [id number] 23:08:24Hm Interface, Radiology Results 03/21/2021 11:11 PM CDT EXAMINATION: XR THORACIC SPINE 1 VWCLINICAL HISTORY: fallCOMPARISON: CT chest 03/18/2021IMPRESSION:Limited crosstable lateral views of the thoracic spine demonstrate no evidence of fracture.Mild multilevel anterior osteophyte formation.Chest wall device and leads.[id number] MethodistCT Head Wo [id number] 22:17:16Hm Interface, Radiology Results 03/21/2021 10:20 PM CDT EXAMINATION: CT HEAD WO CONTRASTCLINICAL HISTORY: fallCOMPARISON: CT head 03/17/2021TECHNIQUE: Axial CT images of the head obtained without intravenous contrast. Multiplanarreformatted images were also generated.FINDINGS:No evidence of acute intracranial hemorrhage, mass, mass effect, midline shift, or acute infarct. Ventricles and sulci are normal in appearance for age.Tiny chronic lacunar infarct involving the right cerebellar hemisphere. Basal cisterns are clear. Calvarium is intact. Skull base vascular calcifications.Orbits are normal in appearance. No significantsinus inflammatory changes. Mastoid air cells are clear. IMPRESSION:1. No CT evidence of acute intracranial abnormality.[id number] [place] MethodistTransthoracic Echocardiogram Complete, (w Contrast, Strain and 3D if needed)2021-03-20 18:00:43 Test Item Value Reference Range Interpretation Comments Ao Root Diameter (test 3.65 cm code = 7625823287) AoV Area, Vmax (test 2.28 cm2 code = 7226351701) AoV Area, VTI (test 2.19 cm2 code = 4069650776) AoV Mean PG (test code 3.17 mmHg = 2132338465) AoV Peak PG (test code 8.49 mmHg = 5383673630) AoV Vmax (test code = 1.46 m/s 5659830008) AoV VTI (test code = 0.18 m 1170399725) IVS,d (test code = 0.71 cm 1160906086) IVS/LVPW,2D (test code 0.74 = 0925072138) Left Atrium Dimension 4.36 cm Anterior (test code = 2202342375) LV,d (test code = 6.67 cm 8881902177) LV EF,2D (test code = 4.48 % 4351088093) LV,s (test code = 6.57 cm 4922113108) LVOT area (test code = 3.73 cm2 2863673129) LVOT Diam,S (test code 2.18 cm = 6468274215) LVOT Vmax (test code = 0.89 m/s 9673369669) LVOT VTI (test code = 0.10 m 3648078268) LVPWD,d (test code = 0.96 cm 5974830445) PV Pk Grad (test code = 1.37 mmHg 5848888380) PV VMAX (test code = 0.59 m/s 2017555156) RVOT Vmax (test code = 0.39 m/s 9762881175) RVSP (TR) (test code = 34.77 mmHg 9591664652) TR Vpeak (test code = 2.82 mm/s 8895958635) AR Press Half Time 833.28 ms (test code = 9767726665) MV E A ratio (test code 1.14 = 4663290709) RA pressure (test code 10.00 mmHg = 5159273379) TR pk grad (test code = 24.77 mmHg 4363637155) MR Vmax (test code = 3.53 m/s 1410833186) MR peak grad (test code 49.95 mmHg = 5855919441) E wave decelartion time 216.93 msec (test code = 8465925014) MV Peak A Cliff (test 0.60 m/s code = 8213998947) MV valve area p 1/2 3.50 cm2 method (test code = 9609443831) MV Peak E Cliff (test 0.68 m/s code = 0962706315) MV stenosis pressure 62.91 ms 1/2 time (test code = 4551983969) LVOT stroke volume 0.37 cm3 (test code = 8791960518) AV LVOT peak gradient 3.20 mmHg (test code = 8118623649) Ascending aorta (test 3.34 cm code = 9427437920) RVSP (test code = 34.77 mmHg 8346851214) Ao Root Diameter (test 3.65 cm code = 3962567703) LV SYS VOL (test code = 221.50 ml 9336899093) LV HUDDLESTON VOL (test code 229.30 ml = 2637327733) LV SV Teich 2D (test 7.80 ml code = 5159707697) LV Vol s Teich PSAX 221.50 ml (test code = 9161182633) RVOT pk grad (test code 0.60 mmHg = 1269059857) AoV Vmn (test code = 0.78 2857644693) LV FS Teich 2D (test 1.52 code = 1815085460) MV AE ratio (test code 0.87 = 3830695753) AR slope (test code = 0.88 8690477248) Ar Vmax (test code = 2.53 6237974540) LA Ao Ratio Mmode (test 1.30 code = 0866962915) LV FS Cube 2D (test 1.52 code = 7396588391) LVOT Vmn (test code = 0.51 1722394067) Ao root annulus (test 3.23 cm code = 0605648398) Aov area Vmn (test code 2.43 cm2 = 0838922369) LVOT mean grad (test 1.39 mmHg code = 8020470183) MAX Pred HR (test code 146.15 = 8117336184) 85 of MPHR (test code = 124.22 5633638433) AR DT (test code = 2873.39 msec 0398750604) AR pk grad (test code = 25.57 mmHg 9761284054) Calc MPHR (test code = 146.15 bpm 4423388845) LV SV Cube 2D (test 13.31 ml code = 8230215743) LV vol d cube 2D (test 297.23 ml code = 7572321026) LV vol s cube 2D (test 283.91 ml code = 0544264146) MV Decel slope (test 3.15 m/s2 code = 2034734930) Pred Exer Dur R1 (test 6.58 code = 3603756346) Pred METS R1 (test code 6.92 = 1841298529) Velocity Ratio (V1/V2) 0.61 m/s (test code = 4689) EF (test code = 3.40 % 9204877325) E/A ratio (test code = 1.13 6827612514) LVOT VTI (CM) (test 10.00 cm code = 9558542931) ASHISH (test code = ASHISH) Left ventricular systolic function is severely impaired. Left Ventricular ejection fraction is <20%. Left atrium size is mildly dilated. Aortic root is normal. No pericardial effusion seen. [place] [facility] Chest W Contrast Abdomen W Contrast Pelvis W Contrast 2021-03-18 22:45:31Hm Interface, Radiology Results 03/18/2021 10:48 PM CDT EXAMINATION: CT CHEST W CONTRAST ABDOMEN W CONTRAST PELVIS W CONTRASTCLINICAL HISTORY: unexplained 40 lb weight loss possible malignancyTECHNIQUE: Multiple axial images of the chest, abdomen, and pelvis were obtained following intravenous administration of iodinated contrast. Sagittal and coronal computerized reformatted images were obtained.Automatic exposure control or iterative reconstruction techniques used to reduce dose.COMPARISON: None.IMPRESSION:Chest: 1. Cardiomegaly status post CABG. Left-sided AICD noted. Borderline enlarged nodes are seen in the mediastinum, largest one is right paratracheal measuring 1.2 cm in short axis. No significant pleural or pericard ial effusion.2.Extensive centrilobular and paraseptal emphysematous changes throughout. Prominent subpleural reticulation with probable honeycomb changes consistent with interstitial pulmonary fibrosisand UIP pattern. No suspicious lung mass. Central airways are patent.Abdomen/Pelvis:1. Liver, adrenals, pancreas, kidneys, and spleen appear unremarkable. Status post cholecystectomy. Tiny left renal cysts.2.Bowel gas pattern is nonobstructive. Tiny free fluid in the pelvis. No significant retroperitoneal or pelvic lymphadenopathy. Prominent thoracolumbar scoliosis and degenerative changes. Arthrosisof the left shoulder.SUMMARY:1.No evidence for malignancy identified. Multiple findings are detailedabove.[facility] Cervical Spine Wo Contrast 2021-03-18 21:34:12Hm Interface, Radiology Results 03/18/2021 9:37 PM CDT EXAMINATION: CT CERVICAL SPINE WO CONTRASTCLINICAL HISTORY: s p fall with head traumaCOMPARISON: NoneTECHNIQUE: Axial noncontrast enhanced images of the cervical spine were obtained with coronal and sagittal reconstructed algorithms. CT imaging was performed with iterative reconstruction techniques and/or automated exposure control to reduce radiation dose.FINDINGS:No fracture or acute subluxation is identified.The paraspinous soft tissues are unremarkable.C2-3: Minimal spondylosis.C3-4: Mild disc degenerative changes. Mild left facet arthrosis. Mild left foraminal stenosis.C4-5: Mild disc degenerative changes. Minimal right facet arthrosis.C5-6: Prominent disc degenerative changes. Mild bilateral foraminal stenosis. Mild canal stenosis.C6- 7: Prominent disc degenerativechanges. Mild bilateral foraminal stenosis.C7-T1: Mild left facet arthrosis.No incidental thyroid lesion is identified. The thyroid is incompletely included in the udwje-ar-jqdz.IMPRESSION: No acute abn ormality of the cervical spine is identified.[facility]-[id number] MethodistUs carotid [id number] 07:05:14Hm Interface, Radiology Results 03/18/2021 7:08 AM CDT Exam: Bilateral carotid artery DopplerHistory: 75 years Male syncopeTechnique: Examination includes full duplex Doppler scan of the blood vessels (real-time B mode grayscale, Doppler spectral analysis, Doppler color flow imaging) of the common carotid, internal carotid, external carotid, and vertebral arteries. Velocity parameters are based upon studies using the distal internal carotid artery as a denominator for stenosis calculation.Findings:Right:*Mild calcified atherosclerotic vascular disease is present In the carotid bulb, common carotid and internal carotid arteries.*The peak systolic velocity in the right internal carotid artery is 55 cm/s and the peak systolic velocity in the right common carotid artery is 49 cm/s.*The vertebral artery is patent and demonstrate antegrade flow. Left:*Mild calcified atherosclerotic vascular disease is present In the carotid bulb, common carotid and internal carotid arteries*The peak systolic velocity in the left internal carotid artery is 55 cm/s and the peak systolic velocity in the left common carotid artery is 70 cm/s.*The vertebral artery is patent and demonstrate antegrade flow.Impression:1. No hemodynamically significant stenosis in the either carotid artery. (less than 50%)2. Mildcalcified atherosclerotic vascular disease is present in the bilateral common, internal and external carotid arteries. 3. The vertebral arteries are patent and demonstrate antegrade flow.[facility] Chest 1 Vw [id number] 17:27:22Hm Interface, Radiology Results 03/17/2021 5:30 PM CDT EXAMINATION: XR CHEST 1 VW PORTABLE HISTORY: 75 years old Male. Dyspnea.COMPARISON: Chest radiograph 01/23/2021IMPRESSION:Median sternotomy postoperative changes. Left subclavian 4- lead pacer defibrillator with leads overlying the right atrium, right ventricle and coronary vein via coronary sinus.Mild to moderate central interstitial opacities in both lungs, likely mild pulmonary edema. Probable trace right pleural effusion. No pneumothorax.Cardiomediastinal silhouette is enlarged, similar to prior.[facility]-[id number] MethodistECG ED Preliminary Interpretation - Not an [id number] 16:50:10Narinder Parker MD 03/19/2021 2:15 AMECG ED Preliminary Interpretation - Not an OrderPerformed by: Narinder Parker MDAuthorized by: Narinder Parker MD ECG reviewed by ED Physician in the absence of a shrimp peeler: yes Quality: Tracing quality: Limited by artifactRate: ECG rate: 96 ECG rate assessment: normal Rhythm: Rhythm: paced Pacing: Type of pacing: VentricularEctopy: Ectopy: PVCs PVCs: Infrequent and unifocalQRS: QRS axis: IndeterminateST segments: ST segments: Non-specificT waves: T waves: non-specificHindman MethodistCT Stroke Brain Wo [id number] 16:30:31Hm Interface, Radiology Results - 03/17/2021 4:33 PM CDT EXAMINATION: CT STROKE BRAIN WO CONTRASTCLINICAL HISTORY: STROKECOMPARISON: NoneTECHNIQUE: Noncontrast CT of the brain was performed. Both soft tissue and bone reconstructionalgorithms are interpreted.CT imaging was performed with iterative reconstruction techniques and/or automated exposure control to reduce radiation dose.FINDINGS:No acute cortical infarct is identified.No intracranial hemorrhage, extra-axial collection, mass effect or hyperdense vessel is seen. There is no acute hydrocephalus. Tiny chronic cortical infarct is noted in the right cerebellar hemisphere. Moderate involutional changes of the brain are present.Intracranial atherosclerotic calcifications are noted.Visualized portions of the paranasal sinuses show no air-fluid level.Mastoid air cells are clear.No fracture or aggressive bony lesion is seen. IMPRESSION:No acute intracranial abnormality identified.Findings were discussed with Dr. NARINDER PARKER at 03/17/2021 4:28 PM who verbalized understanding.HMTW-[id number] MethodistCentral Line Pxwrndrlm9557-70-16 06:41:00Trena Guerrero NP-C 01/16/2021 6:53 AMCentral Line InsertionPerformed by: Trena Guerrero NP-CAuthorized by: Trena Guerrero NP-C Consent: Consent obtained: Written Consent given by: Patient Risks discussed: Arterial puncture, bleeding, incorrect placement, infection,nerve damage and pneumothorax Alternatives discussed: Delayed treatmentUniversal protocol: Procedure explained and questions answered to patient or proxy's satisfaction: yes Relevant documents present and verified: yes Test results available and properly labeled: yes Imaging studies available: yes Required blood products, implants, devices, and special equipment available: yes Immediately prior to procedure, a time out was called: yes Patient identity confirmed: Arm band and verbally with patientPre-procedure details: Hand hygiene: Hand hygiene performed prior to insertion Sterile barrier technique: All elements of maximal sterile technique followed Skin preparation: Chloraprep Skin preparation agent: Skin preparation agent completely dried prior to procedure Anesthesia (see MAR for exact dosages): Anesthesia method: Local infiltration Local anesthetic: Lidocaine 1% w/o epiProcedure details: Catheter type: Triple lumen Catheter size: 7.5 Fr Catheter length (cm): 16 cm Catheter site: internal jugular vein Catheter Site Laterality: Right Patient position: Flat Landmarks identified: yes Ultrasound guidance: yes Sterile ultrasound techniques: Sterile gel and sterile probe covers were used Number of attempts: 1 Successful placement:yes Post-procedure details: Post-procedure: Dressing applied and line sutured Assessment: Blood return through all ports and free fluid flow Patient tolerance of procedure: Tolerated well, no immediate complicationsHindman MethodistArterial Line [id number] 06:25:13Gerardo Garcias NP 01/16/2021 6:26 AMArterial Line Insertion Date/Time: 01/16/2021 6:25 AMPerformed by: Gerardo Garcias NPAuthorized by: Gerardo Garcias NP Consent: Consent obtained: Written Consent given by: Patient Risks discussed: Bleeding, ischemia, repeat procedure, painand infectionIndications: Indications: hemodynamic monitoring and multiple ABGs Pre-procedure details: Skin preparation: 2% Chlorhexidine (Chloraprep) Preparation: Patient was prepped and drapedin sterile fashion Anesthesia (see MAR for exact dosages): Anesthesia method: Local infiltration Local anesthetic: Lidocaine 1% w/o epiProcedure details: Location: R radial Needle gauge: 20 G Placement technique: Seldinger Ultrasound guidance: yes Number of attempts: 1 Transducer: waveform confirmed Post-procedure details: Post-procedure: Secured with tape, sterile dressing applied, sutured and wrist guard applied CMS: Normal and unchanged Patient tolerance of procedure: Tolerated well, no immediate complicationsComments: Trena Guerrero INSTANTIZER OPERATOR at bedside to supervise the procedureCuero Regional HospitalistTHE JEWISH HOSPITALTICAL [id number] 22:36:00Apolinar Valentin MD 01/16/2021 8:27 AMCritical CarePerformed by: Apolinar Valentin [facility] CENTERuthorized by: Apolinar Valentin MD Critical care provider statement: Critical care time (minutes): 45 Critical care time was exclusive of: Separately billable procedures and treating other patients and teaching time Critical care was necessary to treat or prevent imminent or life- threatening deterioration of the following conditions: Cardiac failure Critical care was time spent personally by me on the following activities: Ordering and performing treatments and interventions, development oftreatment plan with patient or surrogate, ordering and review of laboratory studies, ordering and review of radiographic studies, discussions with consultants, pulse oximetry, evaluation of patient's response to treatment, re-evaluation of patient's condition, examination of patient, review of old charts, interpretation of cardiac output measurements and obtaining history from patient or surrogate Ebenezer 'yes' if you are taking over critical care for this patient from another provider.: ernieWestern Missouri Medical Centertaya ChanistTransthoracic Echocardiogram Complete, (w Contrast, Strain and 3D if needed)2021-01-09 12:59:43 Test Item Value Reference Range Interpretation Comments AoV Area, Vmax (test 1.47 cm2 code = 9697587642) AoV Area, VTI (test 1.25 cm2 code = 7633991537) AoV Mean PG (test code 4.00 mmHg = 6917777564) AoV Peak PG (test code 7.62 mmHg = 5415670286) AoV Vmax (test code = 1.38 m/s 2880347647) AoV VTI (test code = 0.16 m 6851474553) IVS,d (test code = 0.80 cm 6901915975) IVS/LVPW,2D (test code 1.10 = 5675281060) Left Atrium Dimension 4.00 cm Anterior (test code = 9734724748) LV,d (test code = 7.02 cm 5220817846) LV EF,2D (test code = 30.77 % 3837051045) LV,s (test code = 6.21 cm 5673929221) LVOT area (test code = 2.83 cm2 8325855628) LVOT Diam,S (test code 1.90 cm = 0042605627) LVOT Vmax (test code = 0.72 m/s 3345284045) LVOT VTI (test code = 0.07 m 6365396560) LVPWD,d (test code = 0.73 cm 8557652352) TR Vpeak (test code = 3.01 mm/s 6163439286) MV E A ratio (test 2.19 code = 9080423632) TR pk grad (test code 31.36 mmHg = 8222379658) MR Inst Flow Rt (test 118.53 ml/s code = 5546440132) MR Vmax (test code = 3.60 m/s 1928238019) MR Eff FROY (test code 32.93 mm2 = 3565867012) MR peak grad (test 51.84 mmHg code = 3884926905) E wave decelartion 137.00 msec time (test code = 6882150605) MV Peak A Cliff (test 0.35 m/s code = 5001755775) MV valve area p 1/2 5.54 cm2 method (test code = 4193073966) MV Peak E Cliff (test 0.76 m/s code = 4976579213) MV stenosis pressure 39.73 ms 1/2 time (test code = 3923897113) AV LVOT peak gradient 2.06 mmHg (test code = 6674724272) MR Vol PISA (test code 3.08 % = 0749280759) MR Vol Cont Eq (test 35.89 ml code = 1245183664) Ao Root,d,2D (test 4.20 cm code = 9703828979) LV SYS VOL (test code 194.70 ml = 4767296177) LV HUDDLESTON VOL (test code 257.07 ml = 9124051219) LV SV Teich 2D (test 62.37 ml code = 0862174743) LV Vol s Teich PSAX 194.70 ml (test code = 7588196412) AoV Vmn (test code = 0.87 8209966155) LV FS Teich 2D (test 11.54 code = 0873794303) MV AE ratio (test code 0.46 = 2259717067) LV FS Cube 2D (test 11.54 code = 6020081967) LVOT Vmn (test code = 0.42 3437424704) Aov area Vmn (test 1.36 cm2 code = 5306384972) LVOT mean grad (test 1.00 mmHg code = 2330939149) MAX Pred HR (test code 146.33 = 5268835114) 85 of MPHR (test code 124.38 = 0380630467) Ao d LA s ratio (test 1.05 code = 4004276049) Calc MPHR (test code = 146.33 bpm 0991754826) LV SV Cube 2D (test 106.47 ml code = 6402175826) LV vol d cube 2D (test 345.95 ml code = 8476246222) LV vol s cube 2D (test 239.48 ml code = 1438274959) MV Decel slope (test 5.51 m/s2 code = 6136372566) Pred Exer Dur R1 (test 6.61 code = 4607819034) Pred METS R1 (test 6.95 code = 1646038956) Velocity Ratio (V1/V2) 0.52 m/s (test code = 4689) EF (test code = 24.26 % 6381693109) E/A ratio (test code = 2.17 4774004993) ASHISH (test code = ASHISH) The left ventricular chamber size is severely enlarged. Left ventricular systolic function is severely impaired. Left Ventricular ejection fraction is <20%. LV wall is thinned, suggesting chronic disease. There is anterior and lateral hypokinesis. The apex is dyskinetic and slightly aneurysmal LA size is mildly dilated. Normal right ventricular size, wall thickness and global function. A pacer/ICD is visualized in the right atrium and right ventricle. The mitral valve appears normal. Moderate mitral valve regurgitation. No evidence of mitral valve stenosis. The tricuspid valve appears normal. Moderate tricuspid valve regurgitation. No evidence of tricuspid valve stenosis. Mild pulmonary hypertension present. RVSP is 39 mmHg. The aortic valve appears normal. Trace aortic regurgitation. No evidence of aortic valve stenosis. The aortic root is dilated (4.2 cm) No pericardial effusion seen. [facility]2021-02-10 20:44:49Erica Garner MD 01/10/2021 3:40 PMCritical CarePerformed by: Erica Garner MDAuthorized by: Erica Garner MD Critical care provider statement: Critical care time (minutes): 35 Critical care was necessary to treat or prevent imminent or life-threatening deterioration of the following conditions: Cardiac failure Critical care was time spent personally by me on the following activities: Development of treatment plan with patient or surrogate, blood draw for specimens, discussions with consultants, discussions with primary provider, evaluation of patient's response to treatment, examination of patient, obtaining history from patient or surrogate, review of old charts, re-evaluation of patient's condition, pulse oximetry, ordering and review of radiographic studies, ordering and review of laboratory studies and ordering and performing treatments and interventionsHCA Houston Healthcare Southeasturgical pathology request 2020-12-04 13:36:50 Test Item Value Reference Range Interpretation Comments Case number (test code = [id number]) Surgical pathology See link below for report (test code = PDF Lab Report [id number]) Result status (test code This is Final Report = [id number]) [id number] [id number] 12:46:37Chase Armenta CRNA 12/03/2020 12:47 PMAirwayPerformed by: Chase Armenta CRNAAuthorized by: Corey Quigley MD Location: ORUrgency: ElectiveDifficult Airway: No Anesthesiologist: Corey Quigley, ADOREesident/HIGH RAW SUGAR BOILER/AA: Chase Armenta CRNAPerformed by: resident/HIGH RAW SUGAR BOILER/AAPreoxygenated with 100% O2: Yes Mask Ventilation: Easy maskFinal Airway Type: Endotracheal airwayFinal En dotracheal Airway: ETTCuffed: Yes Technique Used: Direct laryngoscopyDevices/Methods Used in Placement: Intubating styletInsertion Site: OralBlade Type: MillerLaryngoscope Blade/VideolaryngoscopeBlade Size: 2ETT Size (mm): 7.0Cuff at minimum occlusion pressure: Yes Measured from: LipsETT toLips (cm): 22Placement Verified by: CO2 detection, direct visualization and equal breath sounds Laryngoscopic view: Grade I - full view of glottisNumber of Attempts at Approach: 1 Atraumatic intubationHoubaystate franklin medical center MethodistMicroalbumin / creatinine urine [id number] 15:52:00 Test Item Value Reference Range Interpretation Comments Creatinine, 100 mg/dL 20-320 urine, random (test code = 2161-8) Microalbumin, 2.9 mg/dL See Note: Reference urine (test Range:Reference code = RangeNot establ ished 28589-8) Microalbumin/ 29 See_Comment The ADA defin es creatinine abnormalities i n ratio (test albuminexcretio n as code = follows: Catego ry 9318-7) Result (mcg/ mg creatinine) Nor mal <30Microalbumin uria 30-299 Cli nical albuminuria > OR = 300 The ADA rec ommends that at least t wo of threespecimens collected withi n a 3-6 month period beabnormal befo re considering a p atient to bewithin a diagnostic abby gory. [Automated mess age] The system [employer] h generated this result transmitted ref erence range: <30 mcg/ mg creat. The refe rence range was not u sed to interpret this result as normal/abnor mal. ASHISH (test FASTING:YESFASTING: code = ASHISH) YES RAC (test Performing code = RAC) Organization Information: Site ID: A [facility] Address: [address] [place] [phone] Director: Gibran Richardson Hindman MethodistUrinalysis, micro UA screen with [id number] 15:52:00 Test Item Value Reference Range Interpretation Comments WBC, UA (test NONE SEEN See_Comment [Automated code = 5821-4) message] The system which generated this result transmit ana reference range : < OR = 5 /HPF. Th e reference range was not used to interpret this result as normal/abnormal . RBC, UA (test 0-2 See_Comment [Automated code = 70198-1) message] The system which generated this result transmit ana reference range : < OR = 2 /HPF. Th e reference range was not used to interpret this result as normal/abnormal . Squamous NONE SEEN See_Comment [Automated epithelial cells, message] T he UA (test code = system which 90695-7) generated this result transmit ana reference range : < OR = 5 /HPF. Th e reference range was not used to interpret this result as normal/abnormal . Bacteria, UA NONE SEEN NONE SEEN /HPF (test code = 5769-5) Hyaline casts, UA NONE SEEN NONE SEEN /LPF (test code = 5796-8) ASHISH (test code = FASTING:YESFASTING: ASHISH) YES RAC (test code = Performing RAC) Organization Information: Site ID: RGA Name: [facility] Address: [address] [place] [id number] Director: Gibran Richardson Hindman RocioistVitamin B12 [id number] 13:44:00 Test Item Value Reference Range Interpretation Comments Vitamin B12 (test code = >2000 200-1100 H 2132-9) ASHISH (test code = ASHISH) FASTING:NOFASTING: NO RAC (test code = RAC) Performing Organization Information: Site ID: A Name: [facility] Address: [address] [place] [phone] Director: Gibran Richardson Lab Interpretation (test Abnormal code = 64760-9) Hindman MethodistFolate [id number] 13:44:00 Test Item Value Reference Range Interpretation Comments Folate (test 20.5 ng/mL code = 2284-8) Refer ence Range Lo w: <3.4 Borderline: 3.4-5.4 Normal: >5.4 ASHISH (test code FASTING:NOFASTING: NO = ASHISH) RAC (test code Performing = RAC) Organization Information: Site ID: RGA Name: [facility] Address: [address] [place] [phone] Director: Gibran Rojas [id number] 13:44:00 Test Item Value Reference Range Interpretation Comments Iron level 54 See_Comment [Automated (test code = message] The sy stem 2498-4) which generated this result transmitted reference range : 50 - 180 mcg/dL. T he reference range was not used to interpret this result as normal/abnormal . ASHISH (test code FASTING:NOFASTING: NO = ASHISH) RAC (test code Performing = RAC) Organization Information: Site ID: RGA Name[facility] Address: [address] [place] [phone] Director: Gibran SerranoFluzone High-Dose Quad PF (0.7mL syringe)2020-09-16 15:00:00 Test Item Value Reference Range Interpretation Comments Lab Interpretation (test code = Normal 63893-6) Golden Serrano
--- NOTE | 2021-04-04 17:01 | RAD REPORT ---
EXAM DESCRIPTION: CT - CTHCSPWOC - 04/04/2021 4:38 pm CLINICAL HISTORY: Trauma, head and neck injury. head injury COMPARISON: No comparisons TECHNIQUE: Axial 5 mm thick images of the head were obtained. Axial 2 mm thick images of the cervical spine were obtained with sagittal and coronal reconstruction images generated and reviewed. All CT scans are performed using dose optimization technique as appropriate and may include automated exposure control or mA/KV adjustment according to patient size. FINDINGS: CT HEAD WITHOUT CONTRAST: No acute hemorrhage, hydrocephalus or extra-axial collection is identified.Mild generalized brain atr ophy.No areas of brain edema or midline shift. The paranasal sinuses and mastoids are clear.The calvarium is intact. Small left posterior scalp rigo laly. CT CERVICAL SPINE WITHOUT CONTRAST: No fracture or subluxation.Mild mid and lower cervical degenerative changes.No prevertebral soft tiss ues swelling is identified. Partially visualized right pleural effusion noted. IMPRESSION: No acute intracranial or cervical spine findings.
[2021-04-04] MEDS ORDERED: TETANUS & DIPHTHERIA TOX,ADULT 0.5 ML VIAL ONE (17:41)
--- NOTE | 2021-04-04 17:48 | RAD REPORT ---
EXAM DESCRIPTION: CT - Spine Lumbar Wo Con - 04/04/2021 5:24 pm CLINICAL HISTORY: Radiculopathy. low back pain, fall COMPARISON: No comparisons TECHNIQUE: Axial noncontrast CT imaging of the lumbar spine was performed with coronal and sagittal re-formatted images. All CT scans are performed using dose optimization technique as appropriate and may include automated exposure control or mA/KV adjustment according to patient size. FINDINGS: No acute lumbar spine fracture seen. No aggressive marrow pattern or malalignment. Paraspinal tissues are normal in thickness. No paraspinal abscess or hematoma seen. Small bilateral p leural effusions, larger on the right. Advanced degenerative levoscoliosis is seen the lumbar spine. Prominent degenerative changes present at L3-4 and L4-5. IMPRESSION: No acute lumbar spine finding. 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
--- NOTE | 2021-04-04 18:06 | EDPHYS ---
Physician Documentation [facility] Name: Sander North Age: 75 yrs Sex: Male : 1945 Arrival Date: 04/04/2021 Time: 16:25 Bed 3 Private MD: ED Physician Wyatt Thorne HPI: 04/04 16:26 This 75 yrs old Male presents to ER via EMS with complaints of Fall Injury. jmm 16:26 Details of fall: The patient fell from an upright position. Onset: The symptoms/episode jmm began/occurred acutely, just prior to arrival. Associated injuries: The patient sustained injury to the head, neck injury. The patient has not experienced similar symptoms in the past. Patient tripped, hitting his head against a table, denies LOC. Family states patient had another fall this past Wednesday with ongoing back pain. . Historical: - Allergies: 16:28 PENICILLINS; em - PMHx: 16:28 Arthritis; Atrial Fib; back problems; CHF; Diabetes - NIDDM; GERD; High Cholesterol; em Hypertension; paralysis of sciatic nerve; - PSHx: 16:28 pacemaker; em - Immunization history:: Adult Immunizations up to date. - Social history:: Smoking status: Patient denies any tobacco usage or history of. ROS: 16:26 Constitutional: Negative for fever, chills, and weight loss, Cardiovascular: Negative jmm for chest pain, palpitations, and edema, Respiratory: Negative for shortness of breath, cough, wheezing, and pleuritic chest pain. 16:26 Back: Positive for pain with movement. 16:26 All other systems are negative. Exam: 16:26 Constitutional: This is a well developed, well nourished patient who is awake, alert, jmm and in no acute distress. Eyes: EOMI, no conjunctival erythema appreciated 16:26 ENT: Moist Mucus Membranes Chest/axilla: Normal chest wall appearance and motion. Cardiovascular: Regular rate and rhythm. No edema appreciated Respiratory: Normal respirations, no respiratory distress appreciated Abdomen/GI: Non distended, soft Back: Normal ROM 16:26 MS/ Extremity: Moves all extremities, no obvious deformities appreciated, no edema noted to the lower extremities Neuro: Awake and alert, normal gait Psych: Behavior is normal, Mood is normal, Patient is cooperative and pleasant 16:26 Head/face: Noted is hematoma noted to the left parietal region. Vital Signs: 16:25 BP 103 / 65; Pulse 70; Resp 14; Temp 97.0; Pulse Ox 100% on R/A; Weight 68.49 kg; em Height 5 ft. 10 in. (177.80 cm); Pain 0/10; 17:33 BP 112 / 68; Pulse 69; Resp 15; Pulse Ox 99% on R/A; hb 18:34 BP 116 / 56; Pulse 81; Resp 17; Pulse Ox 93% on R/A; hb 16:25 Body Mass Index 21.67 (68.49 kg, 177.80 cm) em MDM: 16:26 Patient medically screened. delilah 18:04 Data reviewed: vital signs, nurses notes. Counseling: I had a detailed discussion with skinny the patient and/or guardian regarding: the historical points, exam findings, and any diagnostic results supporting the discharge/admit diagnosis, radiology results, the need for outpatient follow up, to return to the emergency department if symptoms worsen or persist or if there are any questions or concerns that arise at home. ED course: Imaging studies negative. Patient is advised to follow up with pcp and otherwise given strict return precautions. patient understood and agrees with the plan of care. . 04/04 16:26 Order name: CT Head C Spine; Complete Time: 17:02 [facility] 04/04 17:07 Order name: CT Lumbar Spine Wo Con; Complete Time: 17:50 [facility] Administered Medications: 17:53 Drug: Tetanus-Diphtheria Toxoid Adult 0.5 ml {Leveler Helper: [employer]. Exp: 05/04/2022. Lot #: [id number]. } Route: IM; Site: right deltoid; Disposition: 04/04/21 18:06 Discharged to Home. Impression: Superficial injury of head, Abrasion of other part of head, Low back pain. - Condition is Stable. - Discharge Instructions: Abrasion, Back Pain, Adult, Head Injury, Adult, Nonsutured Laceration Care. - Medication Reconciliation Form, Thank You Letter, Antibiotic Education, Prescription Opioid Use form. - Follow up: Private Physician; When: 2 - 3 days; Reason: Recheck today's complaints, Continuance of care, Re-evaluation by your physician. Addendum: 04/07/2021 08:50 Co-signature as Attending Physician, Wyatt Thorne MD I agree with the assessment and c balderas plan of care. Signatures: Dispatcher [employer] EDWyatt Trejo MD MD cha Mickail, Joel, PA PA jmm Munoz, Edgar, RN RN Rin Chase, GUI RN hb Corrections: (The following items were deleted from the chart) 04/04 18:35 18:06 04/04/2021 18:06 Discharged to Home. Impression: Superficial injury of head; hb Abrasion of other part of head; Low back pain. Condition is Stable. Forms are Medication Reconciliation Form, Thank You Letter, Antibiotic Education, Prescription Opioid Use. Follow up: Private Physician; When: 2 - 3 days; Reason: Recheck today's complaints, Continuance of care, Re-evaluation by your physician. skinny
--- NOTE | 2021-04-04 18:06 | ER ---
Nurse's Notes [facility] Name: Sander North Age: 75 yrs Sex: Male : 1945 Arrival Date: 04/04/2021 Time: 16:25 Bed 3 Private MD: Diagnosis: Superficial injury of head;Abrasion of other part of head;Low back pain Presentation: 04/04 16:25 Chief complaint: EMS states: called out for a fall, lost balance and hit head on wooden em counter top, denies LOC, reports taking aspirin, laceration noted to the back of the head, no bleeding noted at this time. Coronavirus screen: Client denies travel out of the [place] in the last 14 days. Ebola Screen: Patient negative for fever greater than or equal to 101.5 degrees Fahrenheit, and additional compatible Ebola Virus Disease symptoms Patient denies exposure to infectious person. Patient denies travel to an Ebola-affected area in the 21 days before illness onset. No symptoms or risks identified at this time. Initial Sepsis Screen: Does the patient meet any 2 criteria? No. Patient's initial sepsis screen is negative. Does the patient have a suspected source of infection? No. Patient's initial sepsis screen is negative. Risk Assessment: Do you want to hurt yourself or someone else? Patient reports no desire to harm self or others. Onset of symptoms was April 04, 2021. 16:25 Method Of Arrival: EMS: [facility] em 16:25 Acuity: BRITTNEY 3 em Historical: - Allergies: 16:28 PENICILLINS; em - PMHx: 16:28 Arthritis; Atrial Fib; back problems; CHF; Diabetes - NIDDM; GERD; High Cholesterol; em Hypertension; paralysis of sciatic nerve; - PSHx: 16:28 pacemaker; em - Immunization history:: Adult Immunizations up to date. - Social history:: Smoking status: Patient denies any tobacco usage or history of. Screenin:33 Abuse screen: Denies threats or abuse. Denies injuries from another. Nutritional hb screening: No deficits noted. Tuberculosis screening: No symptoms or risk factors identified. Fall Risk None identified. Assessment: 16:30 General: Appears in no apparent distress. Behavior is calm, cooperative. Pain: Pain hb currently is 6 out of 10 on a pain scale. Neuro: Level of Consciousness is awake, alert, obeys commands, Oriented to person, place, time, situation. Cardiovascular: Patient's skin is warm and dry. Rhythm is regular. Respiratory: Airway is patent Respiratory effort is even, unlabored, Respiratory pattern is regular, symmetrical. GI: No signs and/or symptoms were reported involving the gastrointestinal system. : No signs and/or symptoms were reported regarding the genitourinary system. EENT: No signs and/or symptoms were reported regarding the EENT system. Derm: Skin is pink, warm \T\ dry. Musculoskeletal: Reports back pain, headache, l;laceration noted to back of head, skin tear to right forearm. 17:34 Reassessment: Patient appears in no apparent distress at this time. Patient and/or hb family updated on plan of care and expected duration. Pain level reassessed. Patient is alert, oriented x 3, equal unlabored respirations, skin warm/dry/pink. 18:34 Reassessment: Patient appears in no apparent distress at this time. Patient and/or hb family updated on plan of care and expected duration. Pain level reassessed. Patient is alert, oriented x 3, equal unlabored respirations, skin warm/dry/pink. Vital Signs: 16:25 BP 103 / 65; Pulse 70; Resp 14; Temp 97.0; Pulse Ox 100% on R/A; Weight 68.49 kg; em Height 5 ft. 10 in. (177.80 cm); Pain 0/10; 17:33 BP 112 / 68; Pulse 69; Resp 15; Pulse Ox 99% on R/A; hb 18:34 BP 116 / 56; Pulse 81; Resp 17; Pulse Ox 93% on R/A; hb 16:25 Body Mass Index 21.67 (68.49 kg, 177.80 cm) em ED Course: 16:25 Patient arrived in ED. em 16:25 Gregory Caballero PA is PHCP. m 16:25 Wyatt Thorne MD is Attending Physician. jmm 16:28 Triage completed. em 16:28 Arm band placed on. em 16:38 CT Head C Spine In Process Unspecified. EDMS 17:17 Dillon Aldridge, RN is Primary Nurse. em 17:24 CT Lumbar Spine Wo Con In Process Unspecified. EDMS 17:33 Patient has correct armband on for positive identification. Bed in low position. Call hb light in reach. Side rails up X2. 18:35 No provider procedures requiring assistance completed. Patient did not have IV access hb during this emergency room visit. Administered Medications: 17:53 Drug: Tetanus-Diphtheria Toxoid Adult 0.5 ml {Business Development Director: [employer]. Exp: hb 05/04/2022. Lot #: [id number]. } Route: IM; Site: right deltoid; Outcome: 18:06 Discharge ordered by MD. skinny 18:35 Discharged to home via wheelchair, with family. hb 18:35 Condition: stable 18:35 Discharge instructions given to patient, family, Instructed on discharge instructions, follow up and referral plans. medication usage, wound care, Demonstrated understanding of instructions, follow-up care, medications, wound care. 18:35 Patient left the ED. hb Signatures: Dispatcher [employer] EDMS Gregory Caballero PA PA jmm Munoz, Edgar, RN RN em Baxter, Heather, RN RN Corrections: (The following items were deleted from the chart) 16:29 16:25 Chief complaint: EMS states: called out for a fall, lost balance and hit head on em wooden counter top, denies LOC, reports taking aspirin em
[2021-04-04 18:41] VITALS: TEMP 97
[2021-04-04 18:45] VITALS: BP 116/56; O2SAT 93
== END 2021-04-04 18:35 | disposition home or self-care (01) ==
LOC: ER 16:23
DX: S00.81XA Abrasion of other part of head, initial encounter (principal); W01.190A Fall on same level from slipping, tripping and stumbling with subsequent striking against furniture, initial encounter; I10 Essential (primary) hypertension; Z23 Encounter for immunization; Z88.0 Allergy status to penicillin; Z95.0 Presence of cardiac pacemaker
CPT/HCPCS: 70450; 72125; 72131; 90471; 90714; 99283